=== PATIENT | male | born 1990 | race Two or more races ===

== ENCOUNTER 2019-03-08 16:26 | Emergency (ER) | payer MEDICAID ==
[~2019-03-08] VITALS: Ht 185.4 cm; Wt 86.2 kg
--- NOTE | 2019-03-08 16:33 | NUR ---
PT BIBRA FROM HOME C/O EPIGASTRIP PAIN W/ NAUSEA AND VOMITING X 1 MONTH. WORST SINCE THIS MORNING. PT WAS SEEN ALREADY BY GI SPECIALIST. GOWNED AND PLACED ON MONITOR. DANNY NORMAN.
--- NOTE | 2019-03-08 16:35 | NUR ---
DR NEGRETE AT BEDSIDE FOR EVAL.
--- NOTE | 2019-03-08 16:47 | NUR ---
IV LINE STARTED BLOOD DRAWN AND SENT TO LAB.
[2019-03-08] MEDS ORDERED: ONDANSETRON HCL/PF 4 MG/2 ML VIAL ONE (16:50)
[2019-03-08 16:52] LABS: BASOPHILS # (AUTO) 0.1 /CMM (0.0-0.2); BASOPHILS % (AUTO) 0.8 % (0.0-2.0); EOSINOPHILS % (AUTO) 0.1 % (0.0-6.0); HEMATOCRIT 48 % (39-51); HEMOGLOBIN 16.3 g/dL (13.5-17.5); LYMPHOCYTES # (AUTO) 1.6 /CMM (0.8-4.8); LYMPHOCYTES % (AUTO) 23.3 % (20.0-44.0); MEAN CORPUSCULAR HGB CONC 34 g/dl (31.0-36.0); MEAN CORPUSCULAR VOLUME 86 fL (80-96); MONOCYTES # (AUTO) 0.5 /CMM (0.1-1.30); MONOCYTES % (AUTO) 6.7 % (2.0-12.0); NEUTROPHILS # (AUTO) 4.8 /CMM (1.8-8.9); NEUTROPHILS % (AUTO) 69.1 % (43.0-81.0); PLATELET COUNT (AUTO) 317 /CMM (150-450); WHITE BLOOD COUNT (AUTO) 6.9 K/uL (4.3-11.0)
[2019-03-08] MEDS ORDERED: ONDANSETRON HCL/PF 4 MG/2 ML VIAL IVP ONE (17:00)
[2019-03-08] MEDS ORDERED: IV NS 0.9% 1,000 ML BAG IV ONE (17:00)
[2019-03-08 17:02] LABS: CALCIUM, SERUM 9.8 mg/dL (8.5-10.1); CREATININE 0.9 mg/dL (0.6-1.3); POTASSIUM 3.5 mmol/L (3.5-5.1)
[2019-03-08 17:07] LABS: BILIRUBIN,DIRECT 0.2 mg/dL (0.0-0.2); BILIRUBIN,TOTAL 0.9 mg/dL (0.2-1.0); TOTAL PROTEIN, SERUM 7.5 g/dL (6.4-8.2)
--- NOTE | 2019-03-08 18:16 | NUR ---
Patient discharged to home in stable condition. Written and verbal after care instructions given. Patient verbalizes understanding of instruction.IV removed. Catheter intact and site benign. Pressure and 4x4 applied to site. No bleeding noted.
[2019-03-08 18:23] VITALS: BP 128/76
== END 2019-03-08 18:16 | disposition home or self-care (01) ==
LOC: ER 16:33
DX: R10.9 Unspecified abdominal pain (principal); R11.10 Vomiting, unspecified; R19.7 Diarrhea, unspecified; F12.288 Cannabis dependence with other cannabis-induced disorder; F17.200 Nicotine dependence, unspecified, uncomplicated; E11.9 Type 2 diabetes mellitus without complications; R00.1 Bradycardia, unspecified; Z98.890 Other specified postprocedural states
CPT/HCPCS: 36415; 80048; 80076; 83690; 85025; 96361; 96374; 99283; 99406; J2405; J7030

== ENCOUNTER 2019-12-23 22:27 | Emergency (ER) | payer MEDICAID ==
[~2019-12-23] VITALS: Ht 185.4 cm; Wt 70.3 kg
[2019-12-23] MEDS ORDERED: PANTOPRAZOLE 40 MG VIAL ONE (22:52)
[2019-12-23] MEDS ORDERED: ONDANSETRON HCL/PF 4 MG/2 ML VIAL ONE (22:53)
[2019-12-23 22:56] LABS: BASOPHILS # (AUTO) 0.1 /CMM (0.0-0.2); BASOPHILS % (AUTO) 0.4 % (0.0-2.0); EOSINOPHILS % (AUTO) 0.1 % (0.0-6.0); HEMATOCRIT 46 % (39-51); HEMOGLOBIN 15.2 g/dL (13.5-17.5); LYMPHOCYTES # (AUTO) 1.6 /CMM (0.8-4.8); LYMPHOCYTES % (AUTO) 10.9 % (20.0-44.0); MEAN CORPUSCULAR HGB CONC 33 g/dl (31.0-36.0); MEAN CORPUSCULAR VOLUME 87 fL (80-96); MONOCYTES # (AUTO) 0.7 /CMM (0.1-1.30); MONOCYTES % (AUTO) 4.9 % (2.0-12.0); NEUTROPHILS # (AUTO) 12.2 /CMM (1.8-8.9); NEUTROPHILS % (AUTO) 83.7 % (43.0-81.0); PLATELET COUNT (AUTO) 639 /CMM (150-450); RED BLOOD CELL COUNT(AUTO) 5.24 MIL/uL (4.5-6.0); WHITE BLOOD COUNT (AUTO) 14.6 K/uL (4.3-11.0)
[2019-12-23] MEDS ORDERED: PANTOPRAZOLE 40 MG VIAL IV ONE (23:00)
[2019-12-23] MEDS ORDERED: IV NS 0.9% 1,000 ML BAG IV ONE ×2 (23:00)
[2019-12-23] MEDS ORDERED: ONDANSETRON HCL/PF 4 MG/2 ML VIAL IVP ONE (23:00)
[2019-12-23 23:06] LABS: CALCIUM, SERUM 9.2 mg/dL (8.5-10.1); CREATININE 0.8 mg/dL (0.6-1.3)
[2019-12-23 23:11] LABS: ALBUMIN 3.4 g/dL (3.4-5.0); BILIRUBIN,DIRECT 0.2 mg/dL (0.0-0.2); BILIRUBIN,TOTAL 0.8 mg/dL (0.2-1.0); TOTAL PROTEIN, SERUM 6.6 g/dL (6.4-8.2)
--- NOTE | 2019-12-23 23:15 | NUR ---
COVID SWAB COLLECTED AND SENT TO THE LAB.
--- NOTE | 2019-12-23 23:30 | NUR ---
X RAY AT BED SIDE
--- NOTE | 2019-12-24 00:05 | NUR ---
PATIENT UNWILLING TO PROVIDE URINE. PATIENT UNWILLING TO KEEP HIS ARM STRAIGHT. PATIENT STATES, "I DON'T GIVE A FUCK WHAT YOU WANT, LEAVE ME THE FUCK ALONE". IS NOTIFIED.
--- NOTE | 2019-12-24 00:17 | NUR ---
RETURNED FROM CT
--- NOTE | 2019-12-24 00:29 | NUR ---
URINE COLLECTED AND SENT TO THE LAB.
[2019-12-24 00:41] LABS: APPEARANCE,URINE CLEAR (CLEAR); BILIRUBIN,URINE SMALL (NEGATIVE); BLOOD, URINE NEGATIVE Ery/uL (NEGATIVE); COLOR,URINE YELLOW (YELLOW); LEUKOCYTE ESTERASE ,URINE NEGATIVE (NEGATIVE); NITRITE, URINE NEGATIVE (NEGATIVE); PH,URINE 6.5 (5.0-8.0); PROTEIN,URINE NEGATIVE (NEGATIVE); UGLUCOSE >=1000 mg/dL (NEGATIVE); UROBILINOGEN,URINE 0.2 EU/dL (0.2)
[2019-12-24 01:12] LABS: RBC,URINE 0-2 /HPF (0-2); WBC,URINE 0-2 /HPF (0-3)
[2019-12-24 01:13] LABS: BACTERIA,URINE None seen /HPF (None Seen); SQUAMOUS EPITHELIAL CELL,UR Few /HPF (None Seen)
--- NOTE | 2019-12-24 01:35 | NUR ---
IV removed. Catheter intact and site benign. Pressure and 4x4 applied to site. No bleeding noted.
--- NOTE | 2019-12-24 01:35 | NUR ---
Patient discharged to home in stable condition. Written and verbal after care instructions given. Patient verbalizes understanding of instruction.
[2019-12-24 01:36] VITALS: BP 124/78
== END 2019-12-24 01:36 | disposition home or self-care (01) ==
LOC: ER 22:28
DX: R10.13 Epigastric pain (principal); R11.10 Vomiting, unspecified; E11.65 Type 2 diabetes mellitus with hyperglycemia; Z79.4 Long term (current) use of insulin; R06.02 Shortness of breath; D72.829 Elevated white blood cell count, unspecified; Z20.828 Contact with and (suspected) exposure to other viral communicable diseases
CPT/HCPCS: 36415; 71045; 74176; 80048; 80076; 81001; 82962; 85025; 87426; 96361; 96374; 96375; 99284; C9113; C9803; J2405; J7030 ×2; 81000-TC

== ENCOUNTER 2021-01-08 15:30 | Inpatient (IN) | payer MEDICAID ==
[2021-01-08] VITALS (7 sets, daily range): BP systolic 106–150; BP diastolic 60–84
[~2021-01-08] VITALS: Ht 185.4 cm; Wt 85.3 kg
--- NOTE | 2021-01-08 15:40 | NUR ---
PT VOMITED BLOOD X 1; C/O ABDOMINAL PAIN . BS - 424 MM/DL. A/OX3; TOLERATING R/A AT 99%. CONNTECTED PT TO POX AND TELE MONITOR. SAFETY MEASURES IN PLACE
[2021-01-08] MEDS ORDERED: ONDANSETRON HCL/PF 4 MG/2 ML VIAL ONE ×2 (15:54→18:31)
[2021-01-08] MEDS ORDERED: PANTOPRAZOLE 40 MG VIAL ONE (15:54)
[2021-01-08] MEDS ORDERED: IV LR 1000 ML 1,000 ML IV ONE ×2 (16:00→17:30)
[2021-01-08] MEDS ORDERED: PANTOPRAZOLE 40 MG VIAL IV ONE (16:00)
[2021-01-08] MEDS ORDERED: IV NS 0.9% 1,000 ML BAG IV ONE (16:00)
[2021-01-08] MEDS ORDERED: ONDANSETRON HCL/PF 4 MG/2 ML VIAL IVP ONE (16:00)
[2021-01-08 16:08] LABS: ABG BASE EXCESS -20.8 mmol/L; ABG PCO2 8.9 mmHg (35.0-45.0); ABG PO2 134.1 mmHg (75.0-100.0); COHb 0.2 % (0.5-1.5); MetHb 0.9 % (0.0-1.5); SITE, ABG Right Radial; VENT MODE, BG ROOM AIR
--- NOTE | 2021-01-08 16:10 | NUR ---
INTEGRATED SPECIALIST AT PT'S BEDSIDE
[2021-01-08 16:21] LABS: BASOPHILS % (AUTO) 0.1 % (0.0-2.0); HEMATOCRIT 53 % (39-51); HEMOGLOBIN 17.3 g/dL (13.5-17.5); LYMPHOCYTES # (AUTO) 0.4 K/uL (0.8-4.8); LYMPHOCYTES % (AUTO) 1.9 % (20.0-44.0); MEAN CORPUSCULAR HGB CONC 32 g/dl (31.0-36.0); MEAN CORPUSCULAR VOLUME 88 fL (80-96); MONOCYTES # (AUTO) 0.8 K/uL (0.1-1.30); MONOCYTES % (AUTO) 3.7 % (2.0-12.0); NEUTROPHILS # (AUTO) 20.4 K/uL (1.8-8.9); NEUTROPHILS % (AUTO) 94.3 % (43.0-81.0); PLATELET COUNT (AUTO) 387 K/uL (150-450); RED BLOOD CELL COUNT(AUTO) 6.04 MIL/uL (4.5-6.0); WHITE BLOOD COUNT (AUTO) 21.6 K/uL (4.3-11.0)
[2021-01-08] MEDS ORDERED: SODIUM BICARBONATE SYR 50 MEQ/50 ML DISP.SYRIN ONE (16:53)
[2021-01-08] MEDS ORDERED: SODIUM BICARBONATE SYR 50 MEQ/50 ML DISP.SYRIN IV ONE (17:00)
--- NOTE | 2021-01-08 17:10 | NUR ---
REINA PICCLINE #18; PATENT AND INTACT INSERTED PICCLINE NURSE
[2021-01-08 17:12] LABS: ALANINE AMINOTRANSFERASE 22 U/L (12-78); ALBUMIN 3.7 g/dL (3.4-5.0); ALKALINE PHOSPHATASE 113 U/L (46-116); ASPARTATE AMINOTRANSFERASE 14 U/L (15-37); BILIRUBIN,DIRECT 0.2 mg/dL (0.0-0.2); BILIRUBIN,TOTAL 0.8 mg/dL (0.2-1.0); CALCIUM, SERUM 7.7 mg/dL (8.5-10.1); CREATININE 1.7 mg/dL (0.6-1.3); LIPASE 180 U/L (73-393); POTASSIUM 4.1 mmol/L (3.5-5.1); SODIUM SERUM 123 mmol/L (136-145); TOTAL PROTEIN, SERUM 7.6 g/dL (6.4-8.2); UREA NITROGEN, BLOOD 55 mg/dL (7-18)
[2021-01-08 17:13] LABS: CARBON DIOXIDE 6 mmol/L (21-32); CHLORIDE 80 mmol/L (98-107); GLUCOSE 543 mg/dL (74-106)
--- NOTE | 2021-01-08 17:18 | NUR ---
EMISSION TECHNICIAN AT PT'S BEDSIDE FOR REINA PICCLINE CHECK
[2021-01-08] MEDS ORDERED: INSULIN REGULAR, HUMAN 100 UNITS in IV NS 0.9% 100 ML IV PRN (17:30)
--- NOTE | 2021-01-08 17:45 | NUR ---
CALLED [facility], PAGED DR RUDD
--- NOTE | 2021-01-08 17:46 | NUR ---
TOBIN SPEAKING WITH CADEN
[2021-01-08] MEDS ORDERED: PIPERACILLIN /TAZOBACTAM 3.375 G in IV D5W 50 ML IV ONE (18:00)
--- NOTE | 2021-01-08 18:06 | NUR ---
CALLED BARBARA CAGE
--- NOTE | 2021-01-08 18:09 | NUR ---
DR GILLETTE, FROM [place], TO DR. NEGRETE
[2021-01-08] MEDS ORDERED: PIPERACILLIN /TAZOBACTAM 3.375 G VIAL IV ONE (18:18)
--- NOTE | 2021-01-08 18:20 | NUR ---
UA TAKEN AND SENT TO LAB
--- NOTE | 2021-01-08 18:29 | NUR ---
BS 548 AND NOTIFIED CADEN CAMPBELL. CALLED PHARMACY FOR INSULIN DRIP BAG
[2021-01-08] MEDS ORDERED: MORPHINE SULFATE INJ 4 MG/ML DISP.SYRIN ONE (18:31)
[2021-01-08] MEDS ORDERED: INSULIN REGULAR, HUMAN 100 UNIT/ML 10 ML VIAL ONE ×2 (18:32→18:52)
--- NOTE | 2021-01-08 18:35 | NUR ---
SPOKE TO PHARMACY RUTH TO BRING INSULIN DRIP
--- NOTE | 2021-01-08 18:42 | NUR ---
PER CADEN VERBAL ORDERS: ADMINISTERED ZOFRAN 4MG IVP MORPHINE 4MG IVP PT C/O ABD PAIN. WILL REASSESS PT
[2021-01-08] MEDS ORDERED: Z GUARD REMEDY 2 OZ OINT TP PRN (19:00)
[2021-01-08] MEDS ORDERED: ONDANSETRON HCL/PF - ER 4 MG/2 ML VIAL IV ONE (19:00)
[2021-01-08] MEDS ORDERED: ACETAMINOPHEN 325 MG TABLET PO PRN (19:00)
[2021-01-08] MEDS ORDERED: MORPHINE SULFATE INJ 10 MG/ML DISP.SYRIN IV ONE (19:00)
[2021-01-08] MEDS ORDERED: MAGNESIUM HYDROXIDE 30 ML UDC PO PRN (19:00)
[2021-01-08 19:07] LABS: BILIRUBIN,URINE NEGATIVE (NEGATIVE); COLOR,URINE YELLOW (YELLOW); LEUKOCYTE ESTERASE ,URINE NEGATIVE (NEGATIVE); NITRITE, URINE NEGATIVE (NEGATIVE); PROTEIN,URINE NEGATIVE (NEGATIVE); UGLUCOSE >=1000 mg/dL (NEGATIVE); UROBILINOGEN,URINE 0.2 EU/dL (0.2)
--- NOTE | 2021-01-08 19:09 | NUR ---
MIDLINE #18G INSULIN DRIP 7.07ML/HR ADMINISTERED WITH 2 RN WITNESS
--- NOTE | 2021-01-08 19:14 | NUR ---
BLOOD COLLECTED VIA MIDLINE AND SENT TO LAB
--- NOTE | 2021-01-08 19:21 | NUR ---
ROOM [facility]
--- NOTE | 2021-01-08 19:43 | NUR ---
BS 514; CHANGE MD AWARE
[2021-01-08 19:48] LABS: BACTERIA,URINE None seen /HPF (None Seen); SQUAMOUS EPITHELIAL CELL,UR 0-2 /HPF (None Seen); WBC,URINE 0-2 /HPF (0-3)
--- NOTE | 2021-01-08 20:14 | NUR ---
CALLED ICU TO GIVE REPORT; AWAITING CALL BACK FROM BRENDEN MEEKS
--- NOTE | 2021-01-08 20:24 | NUR ---
RN NOTES RECEIVED ER ADMISSION REPORT FROM CONSTANTINO GUIDRY. ALL PERTINENT ADMISSION INFO REGARDING PT NOTED. WILL WAIT FOR PT TO BE TRANSFERRED TO UNIT AND ADDRESS NEEDS ACCORDINGLY. APARTMENT LEASING AGENT MADE AWARE.
--- NOTE | 2021-01-08 20:28 | NUR ---
REPORT GIVEN TO BRENDEN PROCESS ARTIST FOR ANNALISE
--- NOTE | 2021-01-08 20:46 | NUR ---
COVID SWAB COLLECTED AND SENT TO LAB
--- NOTE | 2021-01-08 20:55 | NUR ---
RN NOTES RECEIVED PT FROM ER VIA GURNEY ACCOMPANIED BY 2 ER STAFF AND TRANSFERRED TO BED VIA 2 PERSON ASSIST. PT IS A/OX3-4;PT ON ROOM AIR WITH RESPIRATIONS EVEN AND UNLABORED. PATIENT COMPLAINS OF UPPER ABDOMAIN PAIN 10/10. COMPREHENSIVE PHYSICAL ASSESSMENT AND PATIENT CARE DONE. CALL LIGHT WITHIN REACH, SAFETY MEASURES AND ISOLATION PRECAUTION IN PLACE, WILL CONTINUE MONITOR AND ASSESS THROUGHOUT THE SHIFT. WILL CARRY OUT MD ORDERS ACCORDINGLY. POISER BALANCE MADE AWARE.
[2021-01-08] MEDS: IV NS 0.9% 1,000 ML IV SCH (21:00)
--- NOTE | 2021-01-08 21:01 | NUR ---
PT TRANSFERRED TO ICU VIA ACLS PROTOCOL WITH INSULIN DRIP 7.07ML/HR IV ORDERED FROM ER:
[2021-01-08] MEDS ORDERED: CEFTRIAXONE 1 G VIAL ONE (21:15)
--- NOTE | 2021-01-08 21:15 | NUR ---
RN NOTES NOTIFIED DYLAN CAMPBELL (DR. MARTÍNEZ) AND SECURED FOR THE FOLOWING ORDER: INSULIN DRIP PER BRIAN JUANITO PROTOCOL, AND MORPHINE 2MG FOR SEVERE PAIN 8-10 Q4H PRN Addendum: 01/08/21 at 2144 by LIZZY BAILON RN WILL CARRY OUT SCHEDULED , PORTER LUGGAGE MADE AWARE.
[2021-01-08] MEDS: CEFTRIAXONE 1 G in IV D5W 50 ML IV SCH (21:26)
[2021-01-08] MEDS: INSULIN REGULAR, HUMAN 100 UNIT in IV NS 0.9% 99 ML IV PRN (22:04)
--- NOTE | 2021-01-08 22:15 | NUR ---
RN NOTES RECEIVED CALL FROM JONATHAN (SISTER OF PATIENT-[phone]) WAS ADVSIED THAT SHE WILL BE THE AUDITOR APPRAISER FOR THE PATIENT. RN ACKNOWLEDGED. ALSO ADVISED HER TO CONTACT ADMITTING TO HAVE HER NAME LISTED ON PT'S RECORD. SHE ACKNOWLEDGED.
[2021-01-08] MEDS: MORPHINE SULFATE INJ 2 MG/ML DISP.SYRIN IV PRN (23:40)
[2021-01-08] MEDS: ONDANSETRON HCL/PF 4 MG/2 ML VIAL IVP PRN (23:44)
[2021-01-09] VITALS (42 sets, daily range): BP systolic 84–143; BP diastolic 50–84
[2021-01-09 00:28] LABS: CALCIUM, SERUM 6.2 mg/dL (8.5-10.1); CREATININE 1.1 mg/dL (0.6-1.3)
[2021-01-09 00:40] LABS: POTASSIUM 2.5 mmol/L (3.5-5.1)
--- NOTE | 2021-01-09 00:40 | NUR ---
RN NOTES RECEIVED CRITICAL LAB ENDORSED BY CORTNEY; POTASSIUM @2.5. DYLAN CAMPBELL () INFORMED. AWAITING FOR ORDERS. CHRONOGRAPH OPERATOR MADE AWARE. Addendum: 01/09/21 at 0058 by LIZZY BAILON RN DYLAN CAMPBELL (DR. MARTÍNEZ) ORDERED POTASSIUM CHLORIDE 80MEQ IV. ELI MEEKS MADE AWARE. WILL CARRY OUT MD ORDER.
[2021-01-09] MEDS: POTASSIUM CL. PREMIX PERIPHER. 50 ML IV SCH ×8 (01:11→08:31)
[2021-01-09] MEDS: MORPHINE SULFATE INJ 2 MG/ML DISP.SYRIN IV PRN ×5 (04:18→19:12)
[2021-01-09] MEDS: IV NS 0.9% 1,000 ML IV SCH ×2 (05:01)
[2021-01-09 05:14] LABS: BASOPHILS % (AUTO) 0.1 % (0.0-2.0); HEMATOCRIT 43 % (39-51); HEMOGLOBIN 14.4 g/dL (13.5-17.5); LYMPHOCYTES # (AUTO) 0.6 K/uL (0.8-4.8); MEAN CORPUSCULAR HGB CONC 34 g/dl (31.0-36.0); MEAN CORPUSCULAR VOLUME 85 fL (80-96); MONOCYTES # (AUTO) 1.2 K/uL (0.1-1.30); MONOCYTES % (AUTO) 6.6 % (2.0-12.0); NEUTROPHILS % (AUTO) 90.3 % (43.0-81.0); PLATELET COUNT (AUTO) 229 K/uL (150-450); RED BLOOD CELL COUNT(AUTO) 5.03 MIL/uL (4.5-6.0); WHITE BLOOD COUNT (AUTO) 18.8 K/uL (4.3-11.0)
[2021-01-09 07:17] LABS: CREATININE 1.1 mg/dL (0.6-1.3); MAGNESIUM 2.5 mg/dL (1.8-2.4); PHOSPHORUS 1.1 mg/dL (2.5-4.9); POTASSIUM 3.5 mmol/L (3.5-5.1)
--- NOTE | 2021-01-09 07:17 | NUR ---
RN CLOSING NOTE: PATIENT REMAINS IN ROOM IN NO SIGNS OF RESPIRATORY DISTRESS, PATIENT STILL ON ROOM AIR ;TOLERATING WELL SATURATING @ >95% SP02. SAFETY MEASURES IMPLEMENTED, BED IN LOWEST POSITION, LOCKED, SIDE RAILS UP, CALL LIGHT WITHIN REACH. ALL NEEDS AND ORDERS ADDRESSED DURING THE SHIFT. IV ACCESS MAINTAINED INTACT, SECURED AND FLUSHING WELL. ALL DUE MEDS GIVEN ORDERED & SCHEDULED ; PATIENT TOLERATED WELL. STILL ON INSULIN DRIP CURRENTLY AT .42UNITS/HR INFUSING AND MONITORED PER PROTOCOL; WAIITNG FOR NEW ANION GAP RESULT. POTASSIUM COVERAGE GIVEN DURING THE SHIFT 6/8 BAGS GIVEN TO COMPLETE 80MEQ. ENDORSED TO AM SHIFT FOR THE 2 REMAINING BAG. PATIENT KEPT CLEAN AND COMFORTABLE WITHIN THE SHIFT. PATIENT ENDORSED TO INCOMING SHIFT RN WITH STABLE VITAL SIGN AND FOR CONTINUITY OF CARE.
--- NOTE | 2021-01-09 07:52 | NUR ---
RN NOTE PT ASLEEP AND LETHARGIC. PT HAS RU PICC RUNNING AT 200 NSCC AND 3.42 INSULIN DRIP. PT HR 100 AND BP 119/68. BS Q1H AND WILL FOLLOW INSULIN DRIP PROTOCOL OF BSX2 /100. WILL CONTINUE TO MONITOR.
[2021-01-09] MEDS: IV D5/0.45 NACL 1,000 ML IV SCH ×2 (08:29→16:10)
[2021-01-09] MEDS: POTASSIUM PHOSPHATE MM 7.5 MMOL in IV NS 0.9% 100 ML IV SCH ×2 (09:26→12:31)
[2021-01-09 11:18] LABS: CREATININE 1.1 mg/dL (0.6-1.3); POTASSIUM 3.7 mmol/L (3.5-5.1)
[2021-01-09] MEDS: ONDANSETRON HCL/PF 4 MG/2 ML VIAL IVP PRN ×3 (13:30→14:27)
[2021-01-09 14:24] LABS: CALCIUM, SERUM 6.9 mg/dL (8.5-10.1); CREATININE 1.1 mg/dL (0.6-1.3); POTASSIUM 3.3 mmol/L (3.5-5.1)
[2021-01-09] MEDS ORDERED: Sodium Phosphate 30 MMOL in IV NS 0.9% 250 ML IV SCH (15:00)
[2021-01-09] MEDS: BLOOD SUGAR DIAGNOSTIC 1 EACH STRIP IN SCH ×5 (16:11→19:57)
[2021-01-09] MEDS: INSULIN REGULAR, HUMAN 100 UNIT in IV NS 0.9% 99 ML IV PRN (17:00)
[2021-01-09 18:56] LABS: CALCIUM, SERUM 7.1 mg/dL (8.5-10.1); POTASSIUM 3.1 mmol/L (3.5-5.1)
--- NOTE | 2021-01-09 19:30 | NUR ---
RN OPENING NOTE REEIVED PATIENT IN BED. A/OX3, VERY LETHARGIC, FOLLOWS COMMAND. TOLERATING ROOM AIR. RESPIRATIONS ARE EVEN AND UNLABORED. NO S/SS OB NOTED. PATIENT JUST RECEIVED MORPHINE FROM PREVIOUS SHIFT. TELE MONITOR READS SINUS RHTYHM HR 95. IN NO APPARENT DISTRES. IV ACEESS IN RIJ PATENT AND SALINE LOCKED, AND REINA PICC LINE RUNING INSULIN AT 4.4UNIT/HR AND D51/2NS@125ML/HR. BED IS LOW AND LOCKED, HOB ELEVATED IN SEMI FOWLERS, SIDE RIALS UP X2, CALL LIGHT WITHIN REACH.
[2021-01-09] MEDS: CEFTRIAXONE 1 G in IV D5W 50 ML IV SCH (19:58)
--- NOTE | 2021-01-09 20:42 | NUR ---
RN NOTE INFORMED GRAIN RECEIVER DR. MARTÍNEZ THAT PATIENT 1999 BS IS 198. ANION GAP IS NOW 14. PATINT STILL ON INSULIN DRIP. RECEIVED ORDERS TO STOP INSULIN DRIP. PLACE ON RISS MODERATE AC HS AND START DIABETIC DIET. AND START LANTUS 20 UNITS SQ. ORDERS READ BACK NOTED AND CARRIED OUT.
[2021-01-09] MEDS ORDERED: DEXTROSE 50%-WATER 50 ML DISP.SYRIN IV PRN (21:00)
[2021-01-09] MEDS: BLOOD SUGAR DIAGNOSTIC 1 EACH STRIP VI SCH (21:36)
[2021-01-09] MEDS: INSULIN GLARGINE, 100 UNIT/ML CARTRIDGE SQ SCH (21:45)
[2021-01-09] MEDS: *INSULIN REGULAR(HUMULIN R)HUM 100 UNIT/ML VIAL SQ PRN (21:46)
[2021-01-10] VITALS (37 sets, daily range): BP systolic 93–150; BP diastolic 51–94
[2021-01-10] MEDS: IV D5/0.45 NACL 1,000 ML IV SCH ×2 (00:02→08:14)
[2021-01-10] MEDS: MORPHINE SULFATE INJ 2 MG/ML DISP.SYRIN IV PRN ×4 (02:02→17:02)
[2021-01-10] MEDS: MAG HYDROX/AL HYDROX/SIMETH 30 ML UDC PO PRN (03:15)
[2021-01-10] MEDS: ONDANSETRON HCL/PF 4 MG/2 ML VIAL IVP PRN ×4 (05:26→17:06)
--- NOTE | 2021-01-10 07:16 | NUR ---
RN OPENING NOTE PATIENT RESTING IN BED. A/OX3, REMAINS LETHARGIC. REMAINS TOLERATING ROOM AIR. NO SOB NOTED. MANAGED PAIN WITH MORPHINE, ONE EPISODE OF EMESIS , ZOFRAN GIVEN, MAALOX GIVEN FOR HEART BURN. TELE IS SINUS RHTYHM. NO DISTRES. IV ACEESS IN RI AND REINA PICC LINE D51/2NS@125ML/HR. BED REMAINS LOW AND LOCKED, HOB ELEVATED IN SEMI FOWLERS, SIDE RIALS UP X2, CALL LIGHT WITHIN REACH. WILL ENDORSE TO ONCOMING SHIFT. Addendum: 01/10/21 at 0719 by MATHIEU ROBLES RN CLOSING NOTE , NOT OPENING NOTE
[2021-01-10 07:18] LABS: BASOPHILS % (AUTO) 0.3 % (0.0-2.0); HEMATOCRIT 41 % (39-51); LYMPHOCYTES # (AUTO) 0.9 K/uL (0.8-4.8); LYMPHOCYTES % (AUTO) 8.8 % (20.0-44.0); MEAN CORPUSCULAR HGB CONC 34 g/dl (31.0-36.0); MEAN CORPUSCULAR VOLUME 84 fL (80-96); MONOCYTES # (AUTO) 0.8 K/uL (0.1-1.30); MONOCYTES % (AUTO) 7.4 % (2.0-12.0); NEUTROPHILS # (AUTO) 8.7 K/uL (1.8-8.9); NEUTROPHILS % (AUTO) 83.5 % (43.0-81.0); PLATELET COUNT (AUTO) 172 K/uL (150-450); RED BLOOD CELL COUNT(AUTO) 4.83 MIL/uL (4.5-6.0); WHITE BLOOD COUNT (AUTO) 10.4 K/uL (4.3-11.0)
[2021-01-10 07:37] LABS: CALCIUM, SERUM 7.2 mg/dL (8.5-10.1); CREATININE 0.7 mg/dL (0.6-1.3); MAGNESIUM 2.3 mg/dL (1.8-2.4); PHOSPHORUS 1.3 mg/dL (2.5-4.9)
[2021-01-10 07:40] LABS: POTASSIUM 2.8 mmol/L (3.5-5.1)
[2021-01-10] MEDS: BLOOD SUGAR DIAGNOSTIC 1 EACH STRIP VI SCH ×4 (08:14→21:32)
--- NOTE | 2021-01-10 08:30 | NUR ---
RN NOTE PATIENT K+ 2.8 MD MADE AWARE.
[2021-01-10] MEDS: *INSULIN REGULAR(HUMULIN R)HUM 100 UNIT/ML VIAL SQ PRN ×2 (08:45→21:41)
[2021-01-10] MEDS: POTASSIUM PHOSPHATE MM 7.5 MMOL in IV NS 0.9% 100 ML IV SCH ×2 (09:49→12:31)
[2021-01-10] MEDS: POTASSIUM CHLORIDE 20 MEQ TAB.PRT.SR PO SCH ×2 (09:49→10:35)
[2021-01-10] MEDS: INSULIN REGULAR, HUMAN 100 UNIT/ML 3 ML VIAL SQ PRN ×2 (12:33→17:08)
[2021-01-10] MEDS: CALCIUM CARBONATE 500 MG TAB.CHEW PO SCH ×2 (13:14→21:31)
[2021-01-10 16:18] LABS: CALCIUM, SERUM 7.2 mg/dL (8.5-10.1); CREATININE 0.8 mg/dL (0.6-1.3); POTASSIUM 3.2 mmol/L (3.5-5.1)
[2021-01-10] MEDS: IV D5/0.45 NACL 1,000 ML IV PRN (17:06)
[2021-01-10] MEDS: CEFTRIAXONE 1 G in IV D5W 50 ML IV SCH (19:31)
[2021-01-10] MEDS: INSULIN GLARGINE, 100 UNIT/ML CARTRIDGE SQ SCH (21:42)
[2021-01-11] VITALS (27 sets, daily range): BP systolic 10–150; BP diastolic 50–80
--- NOTE | 2021-01-11 01:07 | NUR ---
RN NOTE AT 1931, ROCEPHIN ADMINISTERED BY Vanessa ERICKSON RN, SCANNED ACCIDENTALLY, PREVIOUS NURSE STILL SIGNED IN AT THE TIME, DID NOT SIGN OUT
[2021-01-11] MEDS: IV D5/0.45 NACL 1,000 ML IV PRN ×2 (01:28→09:40)
[2021-01-11] MEDS: ONDANSETRON HCL/PF 4 MG/2 ML VIAL IVP PRN (04:27)
[2021-01-11] MEDS: MORPHINE SULFATE INJ 2 MG/ML DISP.SYRIN IV PRN ×3 (04:28→20:08)
[2021-01-11 04:32] LABS: BASOPHILS % (AUTO) 0.3 % (0.0-2.0); EOSINOPHILS % (AUTO) 1.1 % (0.0-6.0); HEMATOCRIT 40 % (39-51); HEMOGLOBIN 13.7 g/dL (13.5-17.5); LYMPHOCYTES # (AUTO) 1.5 K/uL (0.8-4.8); MEAN CORPUSCULAR HGB CONC 35 g/dl (31.0-36.0); MEAN CORPUSCULAR VOLUME 83 fL (80-96); MONOCYTES # (AUTO) 0.8 K/uL (0.1-1.30); MONOCYTES % (AUTO) 8.9 % (2.0-12.0); NEUTROPHILS # (AUTO) 6.4 K/uL (1.8-8.9); NEUTROPHILS % (AUTO) 72.7 % (43.0-81.0); PLATELET COUNT (AUTO) 151 K/uL (150-450); RED BLOOD CELL COUNT(AUTO) 4.78 MIL/uL (4.5-6.0); WHITE BLOOD COUNT (AUTO) 8.7 K/uL (4.3-11.0)
[2021-01-11 04:48] LABS: CALCIUM, SERUM 7.7 mg/dL (8.5-10.1); CREATININE 0.6 mg/dL (0.6-1.3); MAGNESIUM 2.2 mg/dL (1.8-2.4)
[2021-01-11 05:05] LABS: POTASSIUM 2.8 mmol/L (3.5-5.1)
[2021-01-11 05:08] LABS: PHOSPHORUS 0.9 mg/dL (2.5-4.9)
[2021-01-11] MEDS ORDERED: POTASSIUM PHOSPHATE MM 7.5 MMOL in IV NS 0.9% 100 ML IV SCH (07:00)
--- NOTE | 2021-01-11 07:22 | NUR ---
RN NOTE CRITICAL OF K 2.8 AND PHOS 0.9. ORDERS FROM MD MARTÍNEZ, 40MMOL IV CARRIED OUT. PT DENIES PAIN. AND N.V PT VSS. SAFETY MEASURES IN PLACE. ENDORSED TO DAY SHIFT FOR CONTINUATION OF CARE
--- NOTE | 2021-01-11 07:30 | NUR ---
RN NOTES PT FOUND SUPINE SLEEPING DISPLAYING NO S/S OF DISTRESS, FLACC = 0 AND BREATHING IS EVEN AND UNLABORED ON RA. S1S2 NOTED, PULSES PALPATED IN ALL FOUR EXTREMITIES. ASSESSMENT WOKE UP PT, PT ENDORSED NO PAIN AND IS A&OX4. R UA PICC IS PATIENT AND INTACT. VSS, RN WILL MONITOR AND TREAT THROUGHOUT SHIFT. SAFETY MEASUYRES IN PALCE, BED LOCKED AND IN LOWEST POSITION, SIDE RAILS UPX2, CALL LIGHT WITHIN REACH, PT INSTRUCTED TO CALL FOR ASSISTANCE.
[2021-01-11] MEDS ORDERED: POTASSIUM CHLORIDE 20 MEQ TAB.PRT.SR PO ONE (08:00)
[2021-01-11] MEDS: POTASSIUM PHOSPHATE MM 15 MMOL in IV NS 0.9% 250 ML IV SCH ×2 (08:16→11:37)
[2021-01-11] MEDS: CALCIUM CARBONATE 500 MG TAB.CHEW PO SCH ×2 (08:16→20:09)
[2021-01-11] MEDS: BLOOD SUGAR DIAGNOSTIC 1 EACH STRIP VI SCH ×4 (08:17→21:57)
[2021-01-11] MEDS: *INSULIN REGULAR(HUMULIN R)HUM 100 UNIT/ML VIAL SQ PRN ×2 (08:36→22:04)
[2021-01-11] MEDS: INSULIN REGULAR, HUMAN 100 UNIT/ML 3 ML VIAL SQ PRN (12:11)
[2021-01-11] MEDS: MAG HYDROX/AL HYDROX/SIMETH 30 ML UDC PO PRN (14:56)
[2021-01-11] MEDS ORDERED: POTASSIUM PHOSPHATE MM 5 MMOL in IV NS 0.9% 100 ML IV SCH (15:00)
[2021-01-11] MEDS: POTASSIUM PHOSPHATE MM 7.5 MMOL in IV NS 0.9% 100 ML IV SCH ×2 (15:15→20:21)
--- NOTE | 2021-01-11 16:30 | NUR ---
TRANSFER TO [place] RN CALLED AND GAVE REPORT TO CONSTANTINO MCKEE. PT TRANSFERRED TO [facility] ACCOMPANIED BY PRIMARY RN AND TAKE OFF WORKER VIA HOSPITAL BED. PT CURRENTLY ENDORSES 6/10 PAIN SCALE AND REPORTS OF DISCOMFORT OF WHICH RN COMMUNICATED TO ACCEPTING RN. PT IS A&OX4 BREATHING EVEN AND UNLABORED ON RA. VSS. PT ENDORSED IN STABLE CONDITION. SBAR GIVEN AND ALL QUESTIONS ANSWERED.
[2021-01-11] MEDS: INSULIN GLARGINE, 100 UNIT/ML CARTRIDGE SQ SCH (22:01)
[2021-01-12] MEDS: MORPHINE SULFATE INJ 2 MG/ML DISP.SYRIN IV PRN ×4 (01:48→20:52)
--- NOTE | 2021-01-12 05:23 | NUR ---
CLOSING NOTES:SLEPT THROUGH THE NIGHT CONTINENT MEDICATED X2 FOR GENERALIZED PAIN AND EFECTIVE MORPHINE IS HIS REQUISTE BLOOD SUGARS RUN HIGH COVERED INSTRUCTED
[2021-01-12] MEDS: BLOOD SUGAR DIAGNOSTIC 1 EACH STRIP VI SCH ×4 (05:51→21:11)
[2021-01-12] MEDS: INSULIN REGULAR, HUMAN 100 UNIT/ML 3 ML VIAL SQ PRN ×2 (06:33→17:52)
[2021-01-12 06:34] LABS: BASOPHILS % (AUTO) 0.1 % (0.0-2.0); EOSINOPHILS % (AUTO) 2.7 % (0.0-6.0); HEMATOCRIT 39 % (39-51); HEMOGLOBIN 13.7 g/dL (13.5-17.5); LYMPHOCYTES # (AUTO) 1.7 K/uL (0.8-4.8); LYMPHOCYTES % (AUTO) 24.7 % (20.0-44.0); MEAN CORPUSCULAR HGB CONC 35 g/dl (31.0-36.0); MEAN CORPUSCULAR VOLUME 84 fL (80-96); MONOCYTES # (AUTO) 0.6 K/uL (0.1-1.30); MONOCYTES % (AUTO) 9.5 % (2.0-12.0); NEUTROPHILS # (AUTO) 4.3 K/uL (1.8-8.9); PLATELET COUNT (AUTO) 157 K/uL (150-450); RED BLOOD CELL COUNT(AUTO) 4.67 MIL/uL (4.5-6.0); WHITE BLOOD COUNT (AUTO) 6.8 K/uL (4.3-11.0)
[2021-01-12 07:04] LABS: CREATININE 0.5 mg/dL (0.6-1.3); PHOSPHORUS 1.6 mg/dL (2.5-4.9); POTASSIUM 3.1 mmol/L (3.5-5.1)
--- NOTE | 2021-01-12 07:30 | NUR ---
MS RN OPENING NOTE RECEIVED PT AWAKE IN BED. A/OX4. PT IS STABLE ON ROOM AIR WITH NO SOB OR S/S OF RESPIRATORY DISTRESS NOTED. IV ACCESS IN RIJ AND REINA PICC LINE INFUSING D5 1/2NS @ 125ML/HR, INTACT AND PATENT. SAFETY PRECAUTIONS MAINTAINED. BED IN LOWEST LOCKED POSITION, HOB ELEVATED, SIDE RAILS UP X2. CALL LIGHT AND TABLE WITHIN REACH. WILL CONTINUE TO MONITOR.
[2021-01-12] MEDS ORDERED: POTASSIUM PHOSPHATE MM 15 MMOL in IV NS 0.9% 250 ML IV SCH (08:30)
[2021-01-12 08:33] VITALS: BP 126/74
[2021-01-12] MEDS: CALCIUM CARBONATE 500 MG TAB.CHEW PO SCH ×2 (08:38→20:50)
[2021-01-12] MEDS: POTASSIUM CL. PREMIX PERIPHER. 50 ML IV SCH ×3 (09:10→10:15)
[2021-01-12] MEDS: POTASSIUM PHOSPHATE MM 7.5 MMOL in IV NS 0.9% 100 ML IV SCH ×2 (09:40→13:27)
[2021-01-12 16:22] VITALS: BP 139/72
--- NOTE | 2021-01-12 19:00 | NUR ---
MS RN CLOSING NOTE PT IS AWAKE IN BED. A/OX4. PT IS STABLE ON ROOM AIR WITH NO SOB OR S/S OF RESPIRATORY DISTRESS NOTED. IV ACCESS IN RIJ AND REINA PICC LINE INFUSING D5 1/2NS @ 125ML/HR, INTACT AND PATENT. ALL NEEDS HAVE BEEN MET. SAFETY PRECAUTIONS MAINTAINED AT ALL TIMES. BED IN LOWEST LOCKED POSITION, HOB ELEVATED, SIDE RAILS UP X2. CALL LIGHT AND TABLE WITHIN REACH. WILL ENDORSE TO ONCOMING NURSE FOR ANNALISE.
--- NOTE | 2021-01-12 19:25 | NUR ---
MS RN OPENING NOTE RECEIVED PT AWAKE IN BED. A/OX4. PT IS STABLE ON ROOM AIR WITH NO SOB OR S/S OF RESPIRATORY DISTRESS NOTED. BREATHING EVEN AND UNLABORED.IV ACCESS IN RIJ AND REINA PICC LINE INFUSING D5 1/2NS @ 125ML/HR, INTACT AND PATENT. SAFETY PRECAUTIONS MAINTAINED AT ALL TIMES. BED IN LOWEST LOCKED POSITION, HOB ELEVATED, SIDE RAILS UP X2. CALL LIGHT AND TABLE WITHIN REACH. WILL CONTINUE TO MONITOR PATIENT ACCORDINGLY.
[2021-01-12] MEDS: ONDANSETRON HCL/PF 4 MG/2 ML VIAL IVP PRN (19:32)
--- NOTE | 2021-01-12 19:35 | NUR ---
RN MS NOTES PATIENT COMPLAINS OF BEING NAUSEOUS, ICE CHIPS GIVEN- NOT EFFECTIVE. PRN ZOFRAN IV GIVEN ORDERED. WILL CONTINUE TO MONITOR
[2021-01-12 20:00] VITALS: BP 123/71
--- NOTE | 2021-01-12 20:59 | NUR ---
RN NOTES PATIENT C/O OF UPPER BACK PAIN P.S=11/06, PRN MORPHINE SULFATE IV GIVEN PRN DOSE AT 2051H. PLACED PT. IN COMFORTABLE POSITION AND WILL CONTINUE TO MONITOR PATIENT ACCORDINGLY.
[2021-01-12] MEDS: INSULIN GLARGINE, 100 UNIT/ML CARTRIDGE SQ SCH (21:21)
[2021-01-13] MEDS: IV D5/0.45 NACL 1,000 ML IV PRN (02:37)
[2021-01-13] MEDS: MORPHINE SULFATE INJ 2 MG/ML DISP.SYRIN IV PRN ×2 (03:00→08:37)
--- NOTE | 2021-01-13 03:00 | NUR ---
RN NOTES PATIENT C/O OF UPPER BACK PAIN P.S=10, PRN MORPHINE SULFATE IV GIVEN PRN DOSE AT 0300H. PLACED PT. IN COMFORTABLE POSITION AND WILL CONTINUE TO MONITOR PATIENT ACCORDINGLY.
--- NOTE | 2021-01-13 04:00 | NUR ---
RN NOTES VISITED PATIENT ON HIS ROOM, SEEN PATIENT COMFORTABLY SLEEPING ON HIS BED AT THIS TIME. NO SOB NOTED, NO C/O PAIN. WILL CONTINUE TO MONITOR PATIENT ACCDGLY
[2021-01-13 06:34] LABS: BASOPHILS % (AUTO) 0.1 % (0.0-2.0); EOSINOPHILS % (AUTO) 2.5 % (0.0-6.0); HEMATOCRIT 38 % (39-51); HEMOGLOBIN 13.3 g/dL (13.5-17.5); LYMPHOCYTES # (AUTO) 1.5 K/uL (0.8-4.8); LYMPHOCYTES % (AUTO) 19.2 % (20.0-44.0); MEAN CORPUSCULAR HGB CONC 35 g/dl (31.0-36.0); MEAN CORPUSCULAR VOLUME 85 fL (80-96); MONOCYTES # (AUTO) 0.8 K/uL (0.1-1.30); MONOCYTES % (AUTO) 10.2 % (2.0-12.0); NEUTROPHILS # (AUTO) 5.3 K/uL (1.8-8.9); PLATELET COUNT (AUTO) 191 K/uL (150-450); WHITE BLOOD COUNT (AUTO) 7.8 K/uL (4.3-11.0)
--- NOTE | 2021-01-13 06:34 | NUR ---
MS RN CLOSING NOTES PT AWAKE IN BED. A/OX4. PT IS STABLE ON ROOM AIR WITH NO SOB OR S/S OF RESPIRATORY DISTRESS NOTED. BREATHING EVEN AND UNLABORED.IV ACCESS IN RIJ AND REINA PICC LINE INFUSING D5 1/2NS @ 125ML/HR, INTACT AND PATENT. SAFETY PRECAUTIONS MAINTAINED AT ALL TIMES. BED IN LOWEST LOCKED POSITION, HOB ELEVATED, SIDE RAILS UP X2. CALL LIGHT AND TABLE WITHIN REACH. WILL ENDORSED PATIENT TO DAY SHIFT NURSE FOR ANNALISE.
[2021-01-13] MEDS: BLOOD SUGAR DIAGNOSTIC 1 EACH STRIP VI SCH (06:39)
[2021-01-13] MEDS: INSULIN REGULAR, HUMAN 100 UNIT/ML 3 ML VIAL SQ PRN (06:43)
[2021-01-13 07:07] LABS: CREATININE 0.6 mg/dL (0.6-1.3); POTASSIUM 3.4 mmol/L (3.5-5.1)
--- NOTE | 2021-01-13 07:50 | NUR ---
RN OPENING NOTES RECEIVED PATIENT AWAKE ON BED. A/OX4. ON ROOM AIR WITH NO SOB OR S/S OF RESPIRATORY DISTRESS NOTED. BREATHING EVEN AND UNLABORED. WITH IV ACCESS IN RIJ AND REINA PICC LINE INFUSING D5 1/2NS @ 125ML/HR, PATENT AND INTACT. SAFETY PRECAUTIONS MAINTAINED AT ALL TIMES. BED IN LOWEST LOCKED POSITION, HOB ELEVATED, SIDE RAILS UP X2. CALL LIGHT AND TABLE WITHIN REACH. WILL CONTINUE TO MONITOR.
[2021-01-13 08:00] VITALS: BP 108/85
[2021-01-13] MEDS ORDERED: Insulin Glargine,Hum SQ ×2 (08:19→08:29)
[2021-01-13] MEDS: CALCIUM CARBONATE 500 MG TAB.CHEW PO SCH (08:37)
--- NOTE | 2021-01-13 09:19 | NUR ---
RN NOTES CALLED PT'S PHARMACY: [facility] AT TEL # [phone], SPOKED TO PHARMACIST ALVINO AND GAVE DR TAPIA VERBAL ORDER OF INSULIN GLARGINE 100U/ML, ADMINISTER SQ 20U @ HS. ALVINO STATED THAT MEDICATION WILL BE READY TO BE PICKED-UP TODAY.
[2021-01-13] MEDS ORDERED: K PHOS NEUTRAL 250 MG TABLET PO SCH (10:00)
[2021-01-13] MEDS ORDERED: POTASSIUM CHLORIDE 20 MEQ TAB.PRT.SR PO SCH (10:00)
== END 2021-01-13 10:45 | disposition home or self-care (01) | DRG 420 ==
LOC: ER 15:33 → ICU 19:49 → MED 01-11 16:37
PROVIDERS: ADMIT Internal Medicine; ATTEND Family Medicine
PROC: 02HV33Z Insertion of Infusion Device into Superior Vena Cava, Percutaneous Approach (ICD-10-PCS; principal; 2021-01-08)
PROC: B548ZZA Ultrasonography of Superior Vena Cava, Guidance (ICD-10-PCS; 2021-01-08)
DX: E10.10 Type 1 diabetes mellitus with ketoacidosis without coma (principal); N17.0 Acute kidney failure with tubular necrosis; E83.39 Other disorders of phosphorus metabolism; E87.1 Hypo-osmolality and hyponatremia; D72.829 Elevated white blood cell count, unspecified; E10.65 Type 1 diabetes mellitus with hyperglycemia; E83.42 Hypomagnesemia; E86.0 Dehydration; E86.1 Hypovolemia; Z79.4 Long term (current) use of insulin; Z91.19 Patient's noncompliance with other medical treatment and regimen; E87.6 Hypokalemia; Z91.14 Patient's other noncompliance with medication regimen; Z20.822 Contact with and (suspected) exposure to COVID-19; Z98.890 Other specified postprocedural states
CPT/HCPCS: 36415; 36569; 36600; 71045-TC; 80048-TC; 80076-TC; 81001; 82010-TC; 82803-TC; 82962-TC; 83605-TC; 83690-TC; 83735-TC; 84100-TC; 84484-TC; 85025-TC; 85730-TC; 86850-TC; 87040-TC; 87081-TC; 97116-TC; 97530-TC; A9563; C9113; G0378; J0696; J1815; J2270; J2405; J2543; J3480; J3490; J7030; J7040; J7050; J7060; J7120

== ENCOUNTER 2021-06-02 15:43 | Emergency (ER) | payer MEDICAID ==
[~2021-06-02] VITALS: Ht 185.4 cm; Wt 71.2 kg
[~2021-06-02 15:43] MED LIST: Insulin Glargine,Hum SQ
[2021-06-02] MEDS ORDERED: IV PREMIX NS +20MEQ KCL 20 MEQ/L BAG IV ONE (15:50)
[2021-06-02] MEDS ORDERED: IV NS 0.9% 1,000 ML BAG IV ONE ×3 (16:30→19:30)
[2021-06-02] MEDS ORDERED: ASPIRIN 81 MG TAB.CHEW PO ONE (16:30)
[2021-06-02] MEDS ORDERED: ONDANSETRON HCL/PF 4 MG/2 ML VIAL IVP ONE (16:30)
--- NOTE | 2021-06-02 16:30 | NUR ---
SALINE LOCK ESTABLISHED, BLOOD DRAWN AND SENT TO LAB
[2021-06-02] MEDS ORDERED: ONDANSETRON HCL/PF 4 MG/2 ML VIAL ONE (16:35)
[2021-06-02] MEDS ORDERED: ASPIRIN 81 MG TAB.CHEW ONE (16:36)
--- NOTE | 2021-06-02 16:50 | NUR ---
UNABLE TO PROVIDE URINE AT THIS TIME
--- NOTE | 2021-06-02 16:52 | NUR ---
COVID SWAB DONE AND SENT TO LAB
[2021-06-02 17:01] LABS: BASOPHILS % (AUTO) 0.1 % (0.0-2.0); HEMATOCRIT 52 % (39-51); HEMOGLOBIN 16.9 g/dL (13.5-17.5); LYMPHOCYTES # (AUTO) 1.2 K/uL (0.8-4.8); LYMPHOCYTES % (AUTO) 6.8 % (20.0-44.0); MEAN CORPUSCULAR HGB CONC 32 g/dl (31.0-36.0); MEAN CORPUSCULAR VOLUME 87 fL (80-96); MONOCYTES # (AUTO) 0.6 K/uL (0.1-1.30); MONOCYTES % (AUTO) 3.3 % (2.0-12.0); NEUTROPHILS # (AUTO) 15.4 K/uL (1.8-8.9); NEUTROPHILS % (AUTO) 89.8 % (43.0-81.0); PLATELET COUNT (AUTO) 456 K/uL (150-450); RED BLOOD CELL COUNT(AUTO) 5.99 MIL/uL (4.5-6.0); WHITE BLOOD COUNT (AUTO) 17.1 K/uL (4.3-11.0)
--- NOTE | 2021-06-02 17:28 | NUR ---
MOVE SHEET SUBMITTED AND CALLED FOR TELE BED.
[2021-06-02 17:33] LABS: CALCIUM, SERUM 9.6 mg/dL (8.5-10.1); CARBON DIOXIDE 20 mmol/L (21-32); CHLORIDE 91 mmol/L (98-107); CREATININE 1.1 mg/dL (0.6-1.3); POTASSIUM 4.2 mmol/L (3.5-5.1); SODIUM SERUM 136 mmol/L (136-145); UREA NITROGEN, BLOOD 34 mg/dL (7-18)
--- NOTE | 2021-06-02 17:33 | NUR ---
CALLED [facility] [phone]
[2021-06-02 17:36] LABS: GLUCOSE 433 mg/dL (74-106)
[2021-06-02 17:43] LABS: ALANINE AMINOTRANSFERASE 17 U/L (12-78); ALBUMIN 3.8 g/dL (3.4-5.0); ALCOHOL, BLOOD < 3 mg/dL (0-0); ALKALINE PHOSPHATASE 100 U/L (46-116); ASPARTATE AMINOTRANSFERASE 5 U/L (15-37); BILIRUBIN,DIRECT 0.2 mg/dL (0.0-0.2); TOTAL PROTEIN, SERUM 7.7 g/dL (6.4-8.2)
[2021-06-02] MEDS ORDERED: ALBU8.5H8 IH (17:55)
[2021-06-02] MEDS ORDERED: INSU100I14 SQ (17:55)
[2021-06-02] MEDS ORDERED: HYDR50TA61 PO (17:55)
[2021-06-02] MEDS ORDERED: INSU100V7 SQ (17:55)
[2021-06-02] MEDS ORDERED: BUSP5TAB3 PO (17:55)
[2021-06-02] MEDS ORDERED: GABA-532 PO (17:55)
[2021-06-02] MEDS ORDERED: CLON0.5T4 PO (17:55)
[2021-06-02] MEDS ORDERED: BUPR-96 PO (17:55)
[2021-06-02] MEDS ORDERED: METH-647 PO (17:55)
[2021-06-02] MEDS ORDERED: INSULIN REGULAR, HUMAN 100 UNITS in IV NS 0.9% 100 ML IV PRN ×2 (18:00)
[2021-06-02] MEDS ORDERED: IV PREMIX NS +20MEQ KCL 1,000 L IV PRN (18:00)
--- NOTE | 2021-06-02 18:06 | NUR ---
CALLED [facility] [phone] DR. COTTON WILL CALL US BACK.
[2021-06-02 18:18] LABS: CALCIUM, SERUM 8.7 mg/dL (8.5-10.1); CREATININE 1.1 mg/dL (0.6-1.3); POTASSIUM 4.1 mmol/L (3.5-5.1)
[2021-06-02 18:21] LABS: MAGNESIUM 2.2 mg/dL (1.8-2.4); PHOSPHORUS 4.2 mg/dL (2.5-4.9)
[2021-06-02] MEDS ORDERED: MORPHINE SULFATE INJ 10 MG/ML DISP.SYRIN IV ONE (18:30)
[2021-06-02 18:35] LABS: ABG BASE EXCESS -9.8 mmol/L; ABG PCO2 30.9 mmHg (35.0-45.0); ABG PH 7.306 (7.350-7.450); ABG PO2 48.2 mmHg (75.0-100.0); COHb 0.4 % (0.5-1.5); MetHb 0.4 % (0.0-1.5); O2Hb 78.6 % (94.0-97.0); SITE, ABG Other; VENT MODE, BG room air
[2021-06-02] MEDS ORDERED: MORPHINE SULFATE INJ 4 MG/ML DISP.SYRIN ONE (18:37)
--- NOTE | 2021-06-02 18:42 | NUR ---
CALLED [facility] [phone] DR. COTTON WILL CALL US BACK.
--- NOTE | 2021-06-02 19:05 | NUR ---
REC'D PT. PT INSULIN RUNNING AT 3U/HR. CONTINUOUS RUNNING PER ORDER
--- NOTE | 2021-06-02 20:19 | NUR ---
PA VERBAL ORDER 15MG TORADOL IV
[2021-06-02] MEDS ORDERED: KETOROLAC TROMETHAMINE 15 MG/ML VIAL ONE (20:20)
[2021-06-02] MEDS ORDERED: KETOROLAC TROMETHAMINE INJ 30 MG/ML VIAL IV ONE (20:30)
[2021-06-02 21:05] LABS: CALCIUM, SERUM 8.4 mg/dL (8.5-10.1); CREATININE 0.9 mg/dL (0.6-1.3); MAGNESIUM 2.3 mg/dL (1.8-2.4); PHOSPHORUS 3.7 mg/dL (2.5-4.9); POTASSIUM 4.2 mmol/L (3.5-5.1)
--- NOTE | 2021-06-02 21:42 | NUR ---
BARBARA MOOREP F/U STILL LOOKING FOR A BED
--- NOTE | 2021-06-02 21:55 | NUR ---
LAB AT BEDSIDE
[2021-06-02 22:23] LABS: CALCIUM, SERUM 8.1 mg/dL (8.5-10.1); CREATININE 0.9 mg/dL (0.6-1.3); POTASSIUM 4.1 mmol/L (3.5-5.1)
[2021-06-02 22:27] LABS: MAGNESIUM 2.1 mg/dL (1.8-2.4); PHOSPHORUS 3.3 mg/dL (2.5-4.9)
--- NOTE | 2021-06-02 23:52 | NUR ---
PT STILL AWAITING TRANSFER. NO BED AT [facility]. INITATIED DKA INSULIN DRIP PROTOCOL PER FACILITY PROTOCOL USING BGX1 /100= UNITS/HR. 169X1/100 = 1.69UNITS/HR. ADJUSTED PER CALCULATION
[2021-06-03] VITALS: BP 116/74
--- NOTE | 2021-06-03 | NUR ---
followed up with [facility] regarding pt transfer. Pt is going to [facility] under the care of Dr. Raya. pt is going to room 2321. call [phone] for report. Pt will be transferred via CCT eta [phone]
--- NOTE | 2021-06-03 00:11 | NUR ---
ATTEMPTED TO GIVE REPORT TO CONSTANTINO JIMENEZ ON BREAK
--- NOTE | 2021-06-03 00:25 | NUR ---
GAVE REPORT TO CONSTANTINO MESSINA FOR ANNALISE
--- NOTE | 2021-06-03 00:30 | NUR ---
BG 205. PER INSULIN DRIP PROTOCOL 205X1 /100= 2.05U/HR
--- NOTE | 2021-06-03 01:02 | NUR ---
GAVE REPORT TO EMS
== END 2021-06-03 01:15 | disposition short-term general hospital (02) ==
LOC: ER 15:49
DX: E10.10 Type 1 diabetes mellitus with ketoacidosis without coma (principal); Z79.4 Long term (current) use of insulin; E86.0 Dehydration; E87.8 Other disorders of electrolyte and fluid balance, not elsewhere classified; F15.10 Other stimulant abuse, uncomplicated; R79.89 Other specified abnormal findings of blood chemistry; Z20.822 Contact with and (suspected) exposure to COVID-19; R00.0 Tachycardia, unspecified; D72.829 Elevated white blood cell count, unspecified; Z79.899 Other long term (current) drug therapy; R10.84 Generalized abdominal pain
CPT/HCPCS: 36415; 36600; 71045; 80048 ×4; 80076; 80320; 82010; 82803; 82962 ×7; 83605 ×2; 83735 ×4; 84100 ×3; 84145; 84484; 85025; 87040 ×2; 87086; 87426; 93005; 96361 ×2; 96365; 96366; 96374; 96375; 99291; C9803; J1815; J1885; J2270; J2405; J3490; J7030 ×3; G0480

== ENCOUNTER 2021-08-23 11:00 | Emergency (ER) | payer MEDICAID ==
[~2021-08-23] VITALS: Ht 182.9 cm; Wt 61.7 kg
[~2021-08-23 11:00] MED LIST changes: +ALBU8.5H8 IH; +BUPR-96 PO; +BUSP5TAB3 PO; +CLON0.5T4 PO; +GABA-532 PO; +HYDR50TA61 PO; +INSU100I14 SQ; +INSU100V7 SQ; -Insulin Glargine,Hum SQ; +METH-647 PO
--- NOTE | 2021-08-23 11:15 | NUR ---
sitter 1:1 at bedside
--- NOTE | 2021-08-23 11:17 | NUR ---
SANDRA SILVA 20G. LABS DRAWN AND COLLECTED.
--- NOTE | 2021-08-23 11:21 | NUR ---
URINE COLLECTED AND SENT
--- NOTE | 2021-08-23 11:29 | NUR ---
STEVEN GARCIA (MOTHER) [phone]. MINH (SISTER) [phone].
[2021-08-23 11:47] LABS: BASOPHILS % (AUTO) 0.6 % (0.0-2.0); EOSINOPHILS % (AUTO) 0.5 % (0.0-6.0); HEMATOCRIT 38 % (39-51); HEMOGLOBIN 12.8 g/dL (13.5-17.5); LYMPHOCYTES # (AUTO) 1.5 K/uL (0.8-4.8); LYMPHOCYTES % (AUTO) 21.6 % (20.0-44.0); MEAN CORPUSCULAR HGB CONC 34 g/dl (31.0-36.0); MEAN CORPUSCULAR VOLUME 86 fL (80-96); MONOCYTES # (AUTO) 0.4 K/uL (0.1-1.30); MONOCYTES % (AUTO) 5.6 % (2.0-12.0); NEUTROPHILS % (AUTO) 71.7 % (43.0-81.0); PLATELET COUNT (AUTO) 408 K/uL (150-450); RED BLOOD CELL COUNT(AUTO) 4.42 MIL/uL (4.5-6.0)
[2021-08-23 12:07] LABS: BILIRUBIN,URINE NEGATIVE (NEGATIVE); COLOR,URINE YELLOW (YELLOW); LEUKOCYTE ESTERASE ,URINE NEGATIVE (NEGATIVE); NITRITE, URINE NEGATIVE (NEGATIVE); PH,URINE 7.5 (5.0-8.0); PROTEIN,URINE NEGATIVE (NEGATIVE); UGLUCOSE >=1000 mg/dL (NEGATIVE); UROBILINOGEN,URINE 0.2 EU/dL (0.2)
[2021-08-23 12:12] LABS: CALCIUM, SERUM 8.4 mg/dL (8.5-10.1); CARBON DIOXIDE 29 mmol/L (21-32); CHLORIDE 94 mmol/L (98-107); CREATININE 0.4 mg/dL (0.6-1.3); SODIUM SERUM 129 mmol/L (136-145); UREA NITROGEN, BLOOD 6 mg/dL (7-18)
[2021-08-23 12:14] LABS: GLUCOSE 395 mg/dL (74-106)
[2021-08-23 12:19] LABS: ALANINE AMINOTRANSFERASE 14 U/L (12-78); ALBUMIN 3.3 g/dL (3.4-5.0); ALCOHOL, BLOOD < 3 mg/dL (0-0); ALKALINE PHOSPHATASE 77 U/L (46-116); ASPARTATE AMINOTRANSFERASE 10 U/L (15-37); BILIRUBIN,DIRECT 0.1 mg/dL (0.0-0.2); BILIRUBIN,TOTAL 0.4 mg/dL (0.2-1.0); TOTAL PROTEIN, SERUM 6.5 g/dL (6.4-8.2)
[2021-08-23 12:25] LABS: BACTERIA,URINE Rare /HPF (None Seen); RBC,URINE 0-2 /HPF (0-2); SQUAMOUS EPITHELIAL CELL,UR Rare /HPF (None Seen); WBC,URINE 0-2 /HPF (0-3)
[2021-08-23] MEDS ORDERED: INSULIN REGULAR, HUMAN 100 UNIT/ML 10 ML VIAL SQ ONE ×2 (12:30→15:30)
[2021-08-23 12:35] LABS: ACETAMINOPHEN < 2 ug/ml (10-30)
--- NOTE | 2021-08-23 12:50 | NUR ---
GLORIA OBTAINED AND SENT TO LAB
--- NOTE | 2021-08-23 12:59 | NUR ---
CALLED [facility] AND OPENED UP CASE FOR A PT AND WAS ALSO NOTIFIED OF PT ADMISSION STATUS. AWAITING A CALL BACK FROM YEOMAN DOCTOR
[2021-08-23] MEDS ORDERED: IV NS 0.9% 1,000 ML BAG IV ONE ×2 (13:30→15:30)
[2021-08-23] MEDS ORDERED: IV NS 0.9% 500 ML BAG IV ONE (13:30)
[2021-08-23] MEDS ORDERED: LORAZEPAM INJ 2 MG/ML VIAL IV ONE (14:30)
[2021-08-23] MEDS ORDERED: LORAZEPAM 1 MG TABLET ONE (14:40)
[2021-08-23 16:15] LABS: CALCIUM, SERUM 8.2 mg/dL (8.5-10.1); CREATININE 0.5 mg/dL (0.6-1.3); POTASSIUM 4.3 mmol/L (3.5-5.1)
--- NOTE | 2021-08-23 18:10 | NUR ---
SPOKE TO ADRIAN [phone] PT ACCEPTED TO [facility] UNDER DR MORSE [phone] BLS PRN TRANSPORTATION ETS [phone]
[2021-08-23 18:32] VITALS: BP 104/66
--- NOTE | 2021-08-23 19:37 | NUR ---
PRN AT BED SIDE TO LARD MAKER THE PT
--- NOTE | 2021-08-23 19:40 | NUR ---
CALLED [facility] TO GIVE REPORT. THEY HUNG UP ON ME
--- NOTE | 2021-08-23 19:42 | NUR ---
CALLED BARBARA YUN TO GIVE REPORT; PER JACE RN CALL BACK FOR REPORT
--- NOTE | 2021-08-23 20:00 | NUR ---
PLACED A THIRD CALL TO EUREKA TO GIVE REPORT. REMAINED ON HOLD FOR 15 MIN. NO ANSWER
[2021-08-23] MEDS ORDERED: IBUPROFEN 600 MG TABLET ONE (20:01)
--- NOTE | 2021-08-23 20:15 | NUR ---
pt was transferred to [facility]
[2021-08-23] MEDS ORDERED: IBUPROFEN 600 MG TABLET PO ONE (20:30)
== END 2021-08-23 20:44 | disposition short-term general hospital (02) ==
LOC: ER 11:02
DX: E10.65 Type 1 diabetes mellitus with hyperglycemia (principal); Z79.4 Long term (current) use of insulin; Z91.14 Patient's other noncompliance with medication regimen; R45.851 Suicidal ideations; Z20.822 Contact with and (suspected) exposure to COVID-19
CPT/HCPCS: 36415; 80048 ×2; 80076; 80143; 80307; 80320; 81001; 82962 ×3; 85025; 87426; 96360; 96361 ×2; 96372 ×2; 99285; C9803; J1815; J7030 ×2; J7040; G0480

== ENCOUNTER 2021-11-05 12:12 | Inpatient (IN) | payer MEDICAID ==
[~2021-11-05] VITALS: Ht 182.9 cm; Wt 63.5 kg
--- NOTE | 2021-11-05 12:30 | NUR ---
BIBRA78 FROM HOME C/O WEAKNESS, STATES RAN OUT OF INSULIN, BG 456 EPIDEMIOLOGY INTERN. PT WAS GIVEN 1L NS IN THE FIELD. TO ER BED 3, HOOKED TO MONITOR, CHANGED TO HOSP GOWN, WARM BLANKET PROVIDED. PATIENT AAO x 4. PATIENT APPEARS WEAK, BREATHING UNLABORED. AWAITING MD NORMAN.
--- NOTE | 2021-11-05 12:42 | NUR ---
DR SQUIRES AT BEDSIDE
[2021-11-05 13:29] LABS: BASOPHILS % (AUTO) 0.3 % (0.0-2.0); EOSINOPHILS % (AUTO) 0.5 % (0.0-6.0); HEMATOCRIT 40 % (39-51); HEMOGLOBIN 13.3 g/dL (13.5-17.5); LYMPHOCYTES # (AUTO) 1.6 K/uL (0.8-4.8); LYMPHOCYTES % (AUTO) 17.3 % (20.0-44.0); MEAN CORPUSCULAR HGB CONC 33 g/dl (31.0-36.0); MEAN CORPUSCULAR VOLUME 86 fL (80-96); MONOCYTES # (AUTO) 0.4 K/uL (0.1-1.30); NEUTROPHILS # (AUTO) 7.2 K/uL (1.8-8.9); NEUTROPHILS % (AUTO) 77.9 % (43.0-81.0); PLATELET COUNT (AUTO) 413 K/uL (150-450); RED BLOOD CELL COUNT(AUTO) 4.69 MIL/uL (4.5-6.0); WHITE BLOOD COUNT (AUTO) 9.3 K/uL (4.3-11.0)
[2021-11-05] MEDS ORDERED: IV NS 0.9% 2,000 ML IV ONE (13:30)
[2021-11-05] MEDS ORDERED: LORAZEPAM INJ 2 MG/ML VIAL IV ONE (13:30)
[2021-11-05] MEDS ORDERED: ONDANSETRON HCL/PF 4 MG/2 ML VIAL IV ONE (13:30)
[2021-11-05] MEDS ORDERED: ONDANSETRON HCL/PF 4 MG/2 ML VIAL ONE (13:30)
[2021-11-05] MEDS ORDERED: LORAZEPAM INJ 2 MG/ML VIAL ONE (13:30)
[2021-11-05 13:55] LABS: BILIRUBIN,DIRECT 0.1 mg/dL (0.0-0.2); BILIRUBIN,TOTAL 0.4 mg/dL (0.2-1.0); CALCIUM, SERUM 8.9 mg/dL (8.5-10.1); CREATININE 0.6 mg/dL (0.6-1.3); POTASSIUM 4.1 mmol/L (3.5-5.1); TOTAL PROTEIN, SERUM 6.7 g/dL (6.4-8.2)
--- NOTE | 2021-11-05 14:35 | NUR ---
URINE SAMPLE COLLECTED AND SENT TO LAB
[2021-11-05] MEDS ORDERED: INSULIN REGULAR, HUMAN 100 UNITS in IV NS 0.9% 100 ML IV STA ×2 (14:36)
--- NOTE | 2021-11-05 14:38 | NUR ---
RAPID COVID DONE AND SENT TO LAB
--- NOTE | 2021-11-05 14:47 | NUR ---
CALLED [facility] [phone] DR. SCHROEDER WILL CALL US BACK.
[2021-11-05] MEDS ORDERED: IV PREMIX NS +20MEQ KCL 1 L IV PRN (15:00)
[2021-11-05 15:11] LABS: BILIRUBIN,URINE NEGATIVE (NEGATIVE); COLOR,URINE YELLOW (YELLOW); LEUKOCYTE ESTERASE ,URINE NEGATIVE (NEGATIVE); NITRITE, URINE NEGATIVE (NEGATIVE); PH,URINE 5.5 (5.0-8.0); PROTEIN,URINE NEGATIVE (NEGATIVE); UGLUCOSE >=1000 mg/dL (NEGATIVE); UROBILINOGEN,URINE 0.2 EU/dL (0.2)
[2021-11-05 15:31] LABS: CALCIUM, SERUM 8.4 mg/dL (8.5-10.1); CREATININE 0.5 mg/dL (0.6-1.3); MAGNESIUM 1.9 mg/dL (1.8-2.4); PHOSPHORUS 3.3 mg/dL (2.5-4.9)
--- NOTE | 2021-11-05 15:32 | NUR ---
PROVIDED W SALTINE CRACKERS AND WATER
[2021-11-05] MEDS: BLOOD SUGAR DIAGNOSTIC 1 EACH STRIP IN SCH ×6 (15:43→21:41)
[2021-11-05] MEDS ORDERED: MAGNESIUM HYDROXIDE 30 ML UDC PO PRN (16:00)
[2021-11-05] MEDS ORDERED: ZOLPIDEM TARTRATE 5 MG TABLET PO PRN (16:00)
[2021-11-05] MEDS ORDERED: ENOXAPARIN SODIUM 40 MG/0.4 ML DISP.SYRIN SQ SCH (16:00)
[2021-11-05] MEDS ORDERED: Z GUARD REMEDY 4 OZ OINT TP PRN (16:00)
[2021-11-05] MEDS ORDERED: ONDANSETRON HCL/PF 4 MG/2 ML VIAL IVP PRN (16:00)
[2021-11-05] MEDS ORDERED: INSULIN REGULAR, HUMAN 100 UNIT in IV NS 0.9% 99 ML IV PRN ×2 (16:00)
[2021-11-05] MEDS ORDERED: IV LR 1000 ML 1,000 ML IV PRN (16:00)
[2021-11-05] MEDS ORDERED: ACETAMINOPHEN 325 MG TABLET PO PRN (16:00)
[2021-11-05] MEDS ORDERED: MAG HYDROX/AL HYDROX/SIMETH 30 ML UDC PO PRN (16:00)
[2021-11-05 16:18] LABS: BACTERIA,URINE None seen /HPF (None Seen); RBC,URINE 0-2 /HPF (0-2); SQUAMOUS EPITHELIAL CELL,UR 0-2 /HPF (None Seen); WBC,URINE 0-2 /HPF (0-3)
[2021-11-05 16:33] LABS: CHOLESTEROL 180 mg/dL (<200); HDL CHOLESTEROL 75 mg/dL (40-60); LDL 90 mg/dL (0-99); TRIGLYCERIDES 72 mg/dL (30-150)
--- NOTE | 2021-11-05 16:49 | NUR ---
RT ABG drawn on room air. RAPID currently unable to transfer results at this time. PH 7.35 CO2 30.5 PO2 102.1 HCO3 16.5 BE -7.9
--- NOTE | 2021-11-05 17:04 | NUR ---
[facility]ED [facility] CONTACT [facility] WITH ACCEPTING INFO.
[2021-11-05 17:38] LABS: ABG BASE EXCESS -7.9 mmol/L; ABG PCO2 30.5 mmHg (35.0-45.0); ABG PO2 102.1 mmHg (75.0-100.0); COHb 0.3 % (0.5-1.5); MetHb 0.2 % (0.0-1.5); O2Hb 96.4 % (94.0-97.0); SITE, ABG Right Radial; VENT MODE, BG Room Air
--- NOTE | 2021-11-05 17:38 | NUR ---
ZBIGNIEW MEEKS [facility]: [facility] ER TO ER REPORT [phone] ACCEPTING [facility] ETA 2030 PRN AMBULANCE.
[2021-11-05 17:40] LABS: CALCIUM, SERUM 6.9 mg/dL (8.5-10.1); CREATININE 0.4 mg/dL (0.6-1.3); POTASSIUM 5.9 mmol/L (3.5-5.1)
[2021-11-05 17:46] LABS: MAGNESIUM 1.2 mg/dL (1.8-2.4); PHOSPHORUS 2.3 mg/dL (2.5-4.9)
[2021-11-05] MEDS ORDERED: ENOXAPARIN SODIUM 40 MG/0.4 ML DISP.SYRIN SQ ONE (18:00)
--- NOTE | 2021-11-05 18:23 | NUR ---
[facility] DINNER TRAY PROVIDED. PATIENT TOLERATEING WELL
[2021-11-05 18:42] LABS: CREATININE 0.5 mg/dL (0.6-1.3)
--- NOTE | 2021-11-05 18:42 | NUR ---
REPORT GIVEN TO MARGRET MEEKS OR MAGO ESTEVEZ
[2021-11-05 18:47] LABS: MAGNESIUM 1.3 mg/dL (1.8-2.4); PHOSPHORUS 2.2 mg/dL (2.5-4.9)
--- NOTE | 2021-11-05 19:34 | NUR ---
ENDORSEMENT GIVEN TO AMINTA MEEKS FOR CONTINUITY OF CARE
[2021-11-05 20:15] VITALS: BP 112/71
[2021-11-05 20:36] LABS: CREATININE 0.5 mg/dL (0.6-1.3); POTASSIUM 3.1 mmol/L (3.5-5.1)
--- NOTE | 2021-11-05 21:31 | NUR ---
UPDATED ETA 220
--- NOTE | 2021-11-05 21:39 | NUR ---
PRN UNIT 109 AT BEDSIDE FOR TRANSPORT TO [facility]. REPORT GIVEN TO [facility]ORY CARE DIRECTORZULEMA. FOR ANNALISE.
[2021-11-06] MEDS ORDERED: PANTOPRAZOLE 40 MG VIAL IV SCH (09:00)
[2021-11-06] MEDS ORDERED: INSULIN GLARGINE, 100 UNIT/ML CARTRIDGE SQ SCH (09:30)
[2021-11-06] MEDS ORDERED: INSULIN REGULAR, HUMAN 100 UNIT/ML 3 ML VIAL SQ PRN (09:30)
[2021-11-06] MEDS ORDERED: DEXTROSE 50%-WATER 50 ML DISP.SYRIN IV PRN (09:30)
[2021-11-06] MEDS ORDERED: BLOOD SUGAR DIAGNOSTIC 1 EACH STRIP IN SCH (12:00)
[2021-11-07] MEDS ORDERED: PANTOPRAZOLE 40 MG TABLET.DR PO SCH (10:00)
== END 2021-11-07 14:59 | disposition short-term general hospital (02) | DRG 420 ==
LOC: ER 12:14 → TRANSITION 15:25
PROVIDERS: ADMIT Nurse Practitioner Acute Care; ATTEND Nurse Practitioner Acute Care
DX: E11.10 Type 2 diabetes mellitus with ketoacidosis without coma (principal); E87.8 Other disorders of electrolyte and fluid balance, not elsewhere classified; E87.1 Hypo-osmolality and hyponatremia; E83.42 Hypomagnesemia; Z20.822 Contact with and (suspected) exposure to COVID-19; F32.A Depression, unspecified; Z91.14 Patient's other noncompliance with medication regimen; Z79.4 Long term (current) use of insulin; Z79.899 Other long term (current) drug therapy; Z79.51 Long term (current) use of inhaled steroids; J45.909 Unspecified asthma, uncomplicated; E87.5 Hyperkalemia; E11.40 Type 2 diabetes mellitus with diabetic neuropathy, unspecified; E87.6 Hypokalemia
CPT/HCPCS: 36415; 36600; 80048-TC; 80061-TC; 80076-TC; 81001; 82803-TC; 82962-TC; 83690-TC; 83735-TC; 84100-TC; 85025-TC; G0378; J1650; J1815; J2060; J2405; J3490; J7030; J7120

== ENCOUNTER 2021-11-19 14:45 | Emergency (ER) | payer MEDICAID ==
[~2021-11-19] VITALS: Ht 182.9 cm; Wt 68.0 kg
--- NOTE | 2021-11-19 14:54 | NUR ---
FAY RA889 "From Home Abdominal Pain/Nausea/vomiting BS-567 iven zofran 4mg NS 1L". PLACED ON BED, AAOX4, BREATHING EVEN AND UNLABORED SATURATING AT 97%, IN PAIN 10/10 PS.
--- NOTE | 2021-11-19 15:15 | NUR ---
AT BED SIDE
--- NOTE | 2021-11-19 15:18 | NUR ---
BLOOD DWRAWN AND URINE SAMPLE SENT TO LAB
[2021-11-19 15:23] LABS: BASOPHILS % (AUTO) 0.6 % (0.0-2.0); EOSINOPHILS % (AUTO) 0.1 % (0.0-6.0); HEMATOCRIT 40 % (39-51); LYMPHOCYTES % (AUTO) 14.6 % (20.0-44.0); MEAN CORPUSCULAR HGB CONC 33 g/dl (31.0-36.0); MEAN CORPUSCULAR VOLUME 85 fL (80-96); MONOCYTES # (AUTO) 0.2 K/uL (0.1-1.30); MONOCYTES % (AUTO) 3.2 % (2.0-12.0); NEUTROPHILS # (AUTO) 5.4 K/uL (1.8-8.9); NEUTROPHILS % (AUTO) 81.5 % (43.0-81.0); PLATELET COUNT (AUTO) 645 K/uL (150-450); WHITE BLOOD COUNT (AUTO) 6.6 K/uL (4.3-11.0)
[2021-11-19] MEDS ORDERED: IV NS 0.9% 1,000 ML BAG IV ONE (15:30)
[2021-11-19 15:40] LABS: BILIRUBIN,URINE NEGATIVE (NEGATIVE); COLOR,URINE YELLOW (YELLOW); LEUKOCYTE ESTERASE ,URINE NEGATIVE (NEGATIVE); NITRITE, URINE NEGATIVE (NEGATIVE); PROTEIN,URINE NEGATIVE (NEGATIVE); UGLUCOSE >=1000 mg/dL (NEGATIVE); UROBILINOGEN,URINE 0.2 EU/dL (0.2)
[2021-11-19 15:41] LABS: ALBUMIN 2.8 g/dL (3.4-5.0); BILIRUBIN,DIRECT 0.1 mg/dL (0.0-0.2); BILIRUBIN,TOTAL 0.4 mg/dL (0.2-1.0); CALCIUM, SERUM 8.7 mg/dL (8.5-10.1); CREATININE 0.8 mg/dL (0.6-1.3); POTASSIUM 4.5 mmol/L (3.5-5.1); TOTAL PROTEIN, SERUM 6.8 g/dL (6.4-8.2)
[2021-11-19 15:48] LABS: BACTERIA,URINE None seen /HPF (None Seen); RBC,URINE 0-2 /HPF (0-2); SQUAMOUS EPITHELIAL CELL,UR 0-2 /HPF (None Seen); WBC,URINE 0-2 /HPF (0-3)
[2021-11-19] MEDS ORDERED: MAG HYDROX/AL HYDROX/SIMETH 30 ML UDC ONE (15:51)
[2021-11-19] MEDS ORDERED: LIDOCAINE VISCOUS 2% UD 15 ML UDC ONE (15:51)
[2021-11-19] MEDS ORDERED: ONDANSETRON HCL/PF 4 MG/2 ML VIAL ONE (15:51)
[2021-11-19] MEDS ORDERED: KETOROLAC TROMETHAMINE 15 MG/ML VIAL ONE (15:51)
[2021-11-19] MEDS ORDERED: KETOROLAC TROMETHAMINE INJ 30 MG/ML VIAL IV ONE (16:00)
[2021-11-19] MEDS ORDERED: ONDANSETRON HCL/PF - ER 4 MG/2 ML VIAL IV ONE (16:00)
[2021-11-19] MEDS ORDERED: LIDOCAINE VISCOUS 2% UD 15 ML UDC MM ONE (16:00)
[2021-11-19] MEDS ORDERED: MAG HYDROX/AL HYDROX/SIMETH 30 ML UDC PO ONE (16:00)
--- NOTE | 2021-11-19 16:07 | NUR ---
U/S TECH. AT BED SIDE
[2021-11-19] MEDS ORDERED: ONDA4TAB11 PO (17:37)
--- NOTE | 2021-11-19 18:03 | NUR ---
CALLED MOTHER STEVEN [phone]
--- NOTE | 2021-11-19 18:15 | NUR ---
IV removed. Catheter intact and site benign. Pressure and 4x4 applied to site. No bleeding noted.Patient discharged to home in stable condition. Written and verbal after care instructions given. Patient verbalizes understanding of instruction.
[2021-11-19 19:00] VITALS: BP 106/75
== END 2021-11-19 18:15 | disposition home or self-care (01) ==
LOC: ER 14:47
DX: R10.13 Epigastric pain (principal); E10.65 Type 1 diabetes mellitus with hyperglycemia; F32.A Depression, unspecified; F17.200 Nicotine dependence, unspecified, uncomplicated; Z98.890 Other specified postprocedural states
CPT/HCPCS: 99284; 96374; 76705; 96361; 96375; 85025; 80048; 82010; 83690; 80076; 81001; 36415; 82962; J2405; J1885

== ENCOUNTER 2022-02-23 16:25 | Emergency (ER) | payer MEDICAID ==
[~2022-02-23] VITALS: Ht 182.9 cm; Wt 67.6 kg
[~2022-02-23 16:25] MED LIST changes: -ALBU8.5H8 IH; -BUPR-96 PO; -BUSP5TAB3 PO; -CLON0.5T4 PO; -GABA-532 PO; -HYDR50TA61 PO; -INSU100I14 SQ; -INSU100V7 SQ; -METH-647 PO; +ONDA4TAB11 PO
[2022-02-23] MEDS ORDERED: IV NS 0.9% 1,000 ML BAG IV ONE ×4 (17:30→21:30)
[2022-02-23 17:35] LABS: BASOPHILS % (AUTO) 0.3 % (0.0-2.0); EOSINOPHILS % (AUTO) 0.6 % (0.0-6.0); HEMATOCRIT 37 % (39-51); HEMOGLOBIN 12.1 g/dL (13.5-17.5); LYMPHOCYTES # (AUTO) 1.2 K/uL (0.8-4.8); LYMPHOCYTES % (AUTO) 19.4 % (20.0-44.0); MEAN CORPUSCULAR HGB CONC 33 g/dl (31.0-36.0); MEAN CORPUSCULAR VOLUME 90 fL (80-96); MONOCYTES # (AUTO) 0.4 K/uL (0.1-1.30); MONOCYTES % (AUTO) 6.6 % (2.0-12.0); NEUTROPHILS # (AUTO) 4.5 K/uL (1.8-8.9); NEUTROPHILS % (AUTO) 73.1 % (43.0-81.0); PLATELET COUNT (AUTO) 436 K/uL (150-450); RED BLOOD CELL COUNT(AUTO) 4.11 MIL/uL (4.5-6.0); WHITE BLOOD COUNT (AUTO) 6.2 K/uL (4.3-11.0)
[2022-02-23 17:46] LABS: CALCIUM, SERUM 7.9 mg/dL (8.5-10.1); CARBON DIOXIDE 27 mmol/L (21-32); CHLORIDE 89 mmol/L (98-107); CREATININE 0.7 mg/dL (0.6-1.3); POTASSIUM 3.2 mmol/L (3.5-5.1); SODIUM SERUM 124 mmol/L (136-145); UREA NITROGEN, BLOOD 7 mg/dL (7-18)
[2022-02-23 17:50] LABS: ALANINE AMINOTRANSFERASE 17 U/L (12-78); ALKALINE PHOSPHATASE 97 U/L (46-116); ASPARTATE AMINOTRANSFERASE 11 U/L (15-37); BILIRUBIN,DIRECT 0.1 mg/dL (0.0-0.2); BILIRUBIN,TOTAL 0.3 mg/dL (0.2-1.0); LIPASE 230 U/L (73-393); TOTAL PROTEIN, SERUM 6.1 g/dL (6.4-8.2)
[2022-02-23 17:51] LABS: GLUCOSE 654 mg/dL (74-106)
--- NOTE | 2022-02-23 18:00 | NUR ---
pt roomed to ed bed 06. 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 seen and evaluated by dr schwab. w/ order. will carry out.
--- NOTE | 2022-02-23 18:42 | NUR ---
medicated as ordered. see emar.
[2022-02-23] MEDS ORDERED: INSULIN REGULAR, HUMAN 100 UNIT/ML 10 ML VIAL SQ ONE (19:00)
[2022-02-23] MEDS ORDERED: INSULIN REGULAR, HUMAN 100 UNIT/ML 10 ML VIAL ONE (19:03)
[2022-02-23] MEDS ORDERED: POTASSIUM CL. PREMIX PERIPHER. 200 ML ONE (19:03)
[2022-02-23] MEDS: POTASSIUM CL. PREMIX PERIPHER. 50 ML IV SCH ×4 (19:20→22:00)
[2022-02-23] MEDS ORDERED: Calcium Gluconate 1GM/10ML 4.65 MEQ in IV NS 0.9% 100 ML IV ONE (20:30)
--- NOTE | 2022-02-23 20:59 | NUR ---
DR MCCLURE FROM [facility] ON THE PHONE WITH DR THOMAS
--- NOTE | 2022-02-23 21:44 | NUR ---
ACCEPTED AT [facility]. GOING TO ER, UNDER CARE OF DR LAWRENCE, # FOR REPORT; [phone]. BS TRRNSPORTATION W/ ETA: 2015
[2022-02-23] MEDS ORDERED: Calcium Gluconate 0.465 MEQ/ML VIAL IV ONE (21:51)
[2022-02-23 21:52] LABS: SITE, VBG Other; VBG COHb 1.1 %; VBG MetHb 0.2 %; VBG O2Hb 94.4 %; VENT MODE, VBG Room Air
--- NOTE | 2022-02-23 22:05 | NUR ---
REPORT GIVEN TO PANKAJ AT [facility]
[2022-02-23 22:16] VITALS: BP 113/62
--- NOTE | 2022-02-23 22:22 | NUR ---
PT PICKED UP BY [facility] FOR TRANSFER TO [facility]. REPORT GIVEN TO GLOBAL ENGINEERING MANAGER. COPIES OF PT CHART AND IMAGING PROVIDED TRANSFER FORM COMPLETED. V/S WNL.
[2022-02-23 22:28] LABS: BILIRUBIN,URINE NEGATIVE (NEGATIVE); COLOR,URINE OTHER (YELLOW); LEUKOCYTE ESTERASE ,URINE NEGATIVE (NEGATIVE); NITRITE, URINE NEGATIVE (NEGATIVE); PROTEIN,URINE NEGATIVE (NEGATIVE); UGLUCOSE 3+ mg/dL (NEGATIVE); UROBILINOGEN,URINE 0.2 EU/dL (0.2)
[2022-02-24 00:13] LABS: BACTERIA,URINE Rare /HPF (None Seen); RBC,URINE 0-2 /HPF (0-2); SQUAMOUS EPITHELIAL CELL,UR Rare /HPF (None Seen); WBC,URINE 0-2 /HPF (0-3)
== END 2022-02-23 22:38 | disposition short-term general hospital (02) ==
LOC: ER 16:34
DX: E10.65 Type 1 diabetes mellitus with hyperglycemia (principal); Z20.822 Contact with and (suspected) exposure to COVID-19; I38 Endocarditis, valve unspecified; R94.31 Abnormal electrocardiogram [ECG] [EKG]; Z86.59 Personal history of other mental and behavioral disorders
CPT/HCPCS: 99291; 96365; 96361; 71045; 87426; 93005; 82803; 85025; 80048; 87086; 83690; 80076; 81001; 36415; 84484; 82962; 96372; J0610; J1815; J7030; J3480; C9803

== ENCOUNTER 2022-06-14 09:07 | Emergency (ER) | payer MEDICAID ==
[~2022-06-14] VITALS: Ht 185.4 cm; Wt 54.0 kg
[2022-06-14] MEDS ORDERED: IV NS 0.9% 1,000 ML BAG IV ONE (09:30)
--- NOTE | 2022-06-14 09:30 | NUR ---
pleb tech at bedside drawn bld
[2022-06-14 09:51] LABS: BASOPHILS % (AUTO) 0.2 % (0.0-2.0); HEMATOCRIT 31 % (39-51); LYMPHOCYTES # (AUTO) 0.5 K/uL (0.8-4.8); LYMPHOCYTES % (AUTO) 3.9 % (20.0-44.0); MEAN CORPUSCULAR HGB CONC 32 g/dl (31.0-36.0); MEAN CORPUSCULAR VOLUME 90 fL (80-96); MONOCYTES # (AUTO) 0.5 K/uL (0.1-1.30); MONOCYTES % (AUTO) 3.9 % (2.0-12.0); NEUTROPHILS # (AUTO) 11.4 K/uL (1.8-8.9); RED BLOOD CELL COUNT(AUTO) 3.47 MIL/uL (4.5-6.0); WHITE BLOOD COUNT (AUTO) 12.4 K/uL (4.3-11.0)
--- NOTE | 2022-06-14 09:53 | NUR ---
urine sent to lab
[2022-06-14 09:55] LABS: PLATELET COUNT (AUTO) 911 K/uL (150-450)
[2022-06-14 10:13] LABS: CALCIUM, SERUM 9.6 mg/dL (8.5-10.1); CARBON DIOXIDE 29 mmol/L (21-32); CHLORIDE 92 mmol/L (98-107); CREATININE 0.7 mg/dL (0.6-1.3); POTASSIUM 3.9 mmol/L (3.5-5.1); SODIUM SERUM 132 mmol/L (136-145); UREA NITROGEN, BLOOD 12 mg/dL (7-18)
[2022-06-14 10:15] LABS: GLUCOSE 580 mg/dL (74-106)
--- NOTE | 2022-06-14 10:16 | NUR ---
CRITICAL LAB GLU 580. DR OVIEDO MADE AWARE
[2022-06-14 10:23] LABS: BILIRUBIN,URINE NEGATIVE (NEGATIVE); COLOR,URINE YELLOW (YELLOW); LEUKOCYTE ESTERASE ,URINE NEGATIVE (NEGATIVE); NITRITE, URINE NEGATIVE (NEGATIVE); PROTEIN,URINE NEGATIVE (NEGATIVE); UGLUCOSE 3+ mg/dL (NEGATIVE); UROBILINOGEN,URINE 0.2 EU/dL (0.2)
[2022-06-14 10:35] LABS: BACTERIA,URINE None seen /HPF (None Seen); RBC,URINE NONE SEEN /HPF (0-2); SQUAMOUS EPITHELIAL CELL,UR Rare /HPF (None Seen); WBC,URINE 0-2 /HPF (0-3)
[2022-06-14 10:41] LABS: BILIRUBIN,DIRECT 0.2 mg/dL (0.0-0.2); BILIRUBIN,TOTAL 0.6 mg/dL (0.2-1.0)
[2022-06-14 10:42] LABS: ACETAMINOPHEN < 10 ug/ml (10-30); ALANINE AMINOTRANSFERASE 19 U/L (12-78); ALCOHOL, BLOOD < 3 mg/dL (0-0); ALKALINE PHOSPHATASE 149 U/L (46-116); ASPARTATE AMINOTRANSFERASE 18 U/L (15-37); TOTAL PROTEIN, SERUM 8.1 g/dL (6.4-8.2)
[2022-06-14] MEDS ORDERED: INSULIN REGULAR, HUMAN 100 UNIT/ML 10 ML VIAL SQ ONE (11:00)
[2022-06-14] MEDS ORDERED: AZITHROMYCIN 500 MG in IV D5W 250 ML IV ONE (11:00)
[2022-06-14] MEDS ORDERED: CEFTRIAXONE 1GM BAG (ER ONLY) 50 ML IV ONE (11:00)
[2022-06-14] MEDS ORDERED: IV NS 0.9% 1,000 ML IV ONE (11:00)
[2022-06-14] MEDS ORDERED: INSULIN REGULAR, HUMAN 100 UNIT/ML 10 ML VIAL ONE (11:15)
--- NOTE | 2022-06-14 11:22 | NUR ---
CALLED [facility] [phone]
--- NOTE | 2022-06-14 11:31 | NUR ---
BARBARA COSTA WILL CALL DR. OVIEDO BACK.
--- NOTE | 2022-06-14 12:18 | NUR ---
MAY FROM [facility] PT ACCEPTED [place] [facility] [address] [address] DEDRICK Fox PLEASE CALL [phone] PRN WILL TRANSPORT AT 1590.
--- NOTE | 2022-06-14 13:15 | NUR ---
azithromax started 1210 end time 1310. Rocephin start time 1115 end time 1145
--- NOTE | 2022-06-14 14:05 | NUR ---
TRANSPORT AT BEDSIDE FOR [facility] EBS ARCHITECT
--- NOTE | 2022-06-14 14:06 | NUR ---
gave report to grafton NURSE ADORE
[2022-06-14 14:07] VITALS: BP 110/76
== END 2022-06-14 14:15 | disposition short-term general hospital (02) ==
LOC: ER 09:11
DX: J18.1 Lobar pneumonia, unspecified organism (principal); R00.0 Tachycardia, unspecified; E10.65 Type 1 diabetes mellitus with hyperglycemia; D72.829 Elevated white blood cell count, unspecified; D75.839 Thrombocytosis, unspecified; D64.9 Anemia, unspecified; F32.A Depression, unspecified; F17.200 Nicotine dependence, unspecified, uncomplicated; Z79.899 Other long term (current) drug therapy; Z20.822 Contact with and (suspected) exposure to COVID-19
CPT/HCPCS: 99285; 96372; 96365; 96361; 96367; 93005; 71045; 85025; 80048; 87040 ×2; 83605; 80076; 81001; 36415; 82962; 87426; 80143; 80320; 80307; J1815; J0456; J0696; C9803; G0480; J7060

== ENCOUNTER 2022-07-04 10:02 | Inpatient (IN) | payer MEDICAID ==
[~2022-07-04] VITALS: Ht 185.4 cm; Wt 58.1 kg
--- NOTE | 2022-07-04 10:05 | NUR ---
BIB RA 102 FROM HOME C/O ABDOMINAL PAIN FOR A MONTH THAT HAS GOTTEN WORSE. WHEN ASKED TO SHOW WHERE THE PAIN WAS HE POINTED TO THE R SIDE OF HIS RIBS. PT DENIES HAVING DIARRHEA, STATES HE FEELS NAUSEOUS. PAIN IS 9/10 ON PAIN SCALE. BLOOD GLUCOSE [address] GAFFNEY AT BEDSIDE, AWAITING MD ORDERS.
--- NOTE | 2022-07-04 10:11 | NUR ---
IV ESTABLSHED L AC 20G. UNABLE TO OBTAIN BLOOD. SALINE LOCK PLACED.
[2022-07-04] MEDS ORDERED: IV NS 0.9% 1,000 ML BAG IV ONE ×3 (10:30→18:30)
[2022-07-04] MEDS ORDERED: HYDROMORPHONE 1 MG/1 ML DISP.SYRIN IV ONE ×2 (10:30→13:30)
[2022-07-04] MEDS ORDERED: HYDROMORPHONE 1 MG/1 ML DISP.SYRIN ONE ×2 (10:33→13:22)
--- NOTE | 2022-07-04 10:38 | NUR ---
LAB AT BEDSIDE
--- NOTE | 2022-07-04 10:42 | NUR ---
URINE COLLECTED AND SENT
[2022-07-04 11:07] LABS: BILIRUBIN,URINE NEGATIVE (NEGATIVE); COLOR,URINE YELLOW (YELLOW); LEUKOCYTE ESTERASE ,URINE NEGATIVE (NEGATIVE); NITRITE, URINE NEGATIVE (NEGATIVE); PH,URINE 6.5 (5.0-8.0); PROTEIN,URINE NEGATIVE (NEGATIVE); UGLUCOSE 3+ mg/dL (NEGATIVE); UROBILINOGEN,URINE 0.2 EU/dL (0.2)
--- NOTE | 2022-07-04 11:09 | NUR ---
x ray called for eta of image no response.
--- NOTE | 2022-07-04 11:14 | NUR ---
PT IN BED RESTING NO S/S/ OF DISTRESS. A/O X4 PAIN STILL PRESENT BUT HAS DECREASED. CONNECTED TO BEDSIDE MONITOR. AWAITING X RAY.
[2022-07-04 11:15] LABS: CALCIUM, SERUM 8.7 mg/dL (8.5-10.1); CARBON DIOXIDE 24 mmol/L (21-32); CHLORIDE 96 mmol/L (98-107); CREATININE 0.6 mg/dL (0.6-1.3); GLUCOSE 459 mg/dL (74-106); SODIUM SERUM 133 mmol/L (136-145); UREA NITROGEN, BLOOD 6 mg/dL (7-18)
--- NOTE | 2022-07-04 11:15 | NUR ---
X RAY AT BEDSIDE
[2022-07-04 11:32] LABS: ALANINE AMINOTRANSFERASE 14 U/L (12-78); ALBUMIN 2.3 g/dL (3.4-5.0); ALKALINE PHOSPHATASE 118 U/L (46-116); ASPARTATE AMINOTRANSFERASE 8 U/L (15-37); BILIRUBIN,DIRECT 0.1 mg/dL (0.0-0.2); BILIRUBIN,TOTAL 0.4 mg/dL (0.2-1.0); TOTAL PROTEIN, SERUM 7.3 g/dL (6.4-8.2)
--- NOTE | 2022-07-04 11:32 | NUR ---
CALLED [facility] AND OPENED UP A CASE FOR THE PT
[2022-07-04 11:41] LABS: BASOPHILS % (AUTO) 0.3 % (0.0-2.0); EOSINOPHILS % (AUTO) 0.2 % (0.0-6.0); HEMATOCRIT 32 % (39-51); HEMOGLOBIN 10.1 g/dL (13.5-17.5); LYMPHOCYTES # (AUTO) 0.8 K/uL (0.8-4.8); LYMPHOCYTES % (AUTO) 6.7 % (20.0-44.0); MEAN CORPUSCULAR HGB CONC 32 g/dl (31.0-36.0); MEAN CORPUSCULAR VOLUME 89 fL (80-96); MONOCYTES # (AUTO) 0.7 K/uL (0.1-1.30); MONOCYTES % (AUTO) 5.9 % (2.0-12.0); NEUTROPHILS # (AUTO) 10.1 K/uL (1.8-8.9); NEUTROPHILS % (AUTO) 86.9 % (43.0-81.0); PLATELET COUNT (AUTO) 636 K/uL (150-450); RED BLOOD CELL COUNT(AUTO) 3.56 MIL/uL (4.5-6.0); WHITE BLOOD COUNT (AUTO) 11.6 K/uL (4.3-11.0)
[2022-07-04 11:41] LABS: RBC,URINE 0-2 /HPF (0-2); WBC,URINE 0-2 /HPF (0-3)
[2022-07-04 11:42] LABS: BACTERIA,URINE None seen /HPF (None Seen); SQUAMOUS EPITHELIAL CELL,UR Rare /HPF (None Seen); YEAST,URINE Rare /HPF (None Seen)
--- NOTE | 2022-07-04 11:54 | NUR ---
CALLED [facility] FOR A CALL BACK
[2022-07-04] MEDS ORDERED: AZITHROMYCIN 500 MG in IV D5W 250 ML IV ONE (12:00)
[2022-07-04] MEDS ORDERED: INSULIN REGULAR, HUMAN 100 UNIT/ML 10 ML VIAL SQ ONE (12:00)
[2022-07-04] MEDS ORDERED: CEFTRIAXONE 1GM BAG (ER ONLY) 1 GM/50 ML PIGGYBACK IV ONE (12:00)
[2022-07-04] MEDS ORDERED: CEFTRIAXONE 1GM BAG (ER ONLY) 50 ML IV ONE (12:08)
[2022-07-04] MEDS ORDERED: INSULIN REGULAR, HUMAN 100 UNIT/ML 10 ML VIAL ONE (12:09)
--- NOTE | 2022-07-04 12:51 | NUR ---
SHREYA [phone] ASKED TO CALL ONCE THE COVID TEST IS IN TO RECEIVE INFORMATION REGARDING PT'S BED.
--- NOTE | 2022-07-04 12:55 | NUR ---
COVID TEST COLLECTED AND SENT
--- NOTE | 2022-07-04 13:58 | NUR ---
PER [place] [facility], PT ACCEPTED AT [facility], ACCEPTING PHYSICIAN: DR VAN CANTRELL ROOM [id number]. CALL [phone] FOR REPORT.. , [facility] FOR TRANSPORT ETA 15:00
--- NOTE | 2022-07-04 15:24 | NUR ---
TRANSPORT TO [place] ARRIVED AWAITING TRANSPORT.
--- NOTE | 2022-07-04 16:22 | NUR ---
CALLED [facility] WITH UPDATED VITALS
--- NOTE | 2022-07-04 17:02 | NUR ---
PER [place] [facility], PT ACCEPTED AT [facility], ACCEPTING PHYSICIAN: DR VAN CANTRELL ROOM [id number]. CALL [phone] FOR REPORT.. , [facility] FOR TRANSPORT ETA 18:00
[2022-07-04] MEDS ORDERED: ACETAMINOPHEN ES 500 MG TABLET ONE (17:44)
--- NOTE | 2022-07-04 19:27 | NUR ---
CALLED [facility] FOR ADMITTING PHYSICIAN
--- NOTE | 2022-07-04 19:37 | NUR ---
BARBARA RASHEED AUTH # [id number] FOR PT TO STAY
[2022-07-04 21:25] VITALS: BP 102/65
--- NOTE | 2022-07-04 21:25 | NUR ---
RESOURCE MANAGEMENT SPECIALISTINSURANCE CUSTOMER SERVICE SPECIALIST NOTES REPORT RECEIVED FROM [place]. PATIENT WAS TRANSFERRED FROM ER VIA GURNEY, WITH NO SIGNS OF DISTRESS. ORIENTED PATIENT TO ROOM SET UP AND EDUCATED PATIENT ON THE USE OF CALL LIGHT. VS TAKEN, STABLE AND RECORDED. SKIN ASSESSMENT DONE, SKIN IS INTACT. ALL BELONGINGS CHECKED AND BELONGING LIST SIGNED. WILL CONTINUE TO MONITOR AND WILL CARRY OUT ANY ONGOING ACTIVE MS ORDERS.
[2022-07-04] MEDS ORDERED: Z GUARD REMEDY 4 OZ OINT TP PRN (22:30)
[2022-07-04] MEDS ORDERED: INSULIN GLARGINE, 100 UNIT/ML CARTRIDGE SQ SCH (22:30)
[2022-07-04] MEDS ORDERED: MAG HYDROX/AL HYDROX/SIMETH 30 ML UDC PO PRN (22:30)
[2022-07-04] MEDS ORDERED: ZOLPIDEM TARTRATE 5 MG TABLET PO PRN (22:30)
[2022-07-04] MEDS ORDERED: ONDANSETRON HCL/PF 4 MG/2 ML VIAL IVP PRN (22:30)
[2022-07-04] MEDS ORDERED: DEXTROSE 50%-WATER 50 ML DISP.SYRIN IV PRN (22:30)
[2022-07-04] MEDS ORDERED: ACETAMINOPHEN 325 MG TABLET PO PRN (22:30)
[2022-07-04] MEDS ORDERED: MAGNESIUM HYDROXIDE 30 ML UDC PO PRN (22:30)
[2022-07-04] MEDS ORDERED: IV NS 0.9% 1,000 ML IV PRN (22:30)
[2022-07-04] MEDS: INSULIN REGULAR, HUMAN 100 UNIT/ML 3 ML VIAL SQ PRN (22:33)
[2022-07-04] MEDS: HYDROCODONE/APAP 5/325MG TABLET PO PRN (23:41)
[2022-07-05] VITALS: BP 87/54
[2022-07-05] MEDS: KETOROLAC TROMETHAMINE INJ 30 MG/ML VIAL IM PRN ×2 (00:15→06:12)
--- NOTE | 2022-07-05 00:15 | NUR ---
RN NOTES PATIENT C/O OF ABDOMINAL PAIN WITH 9/10 PAIN LEVEL. TORADOL INJ GIVEN IM PRN . WILL CONTINUE TO MONITOR THE PATIENT.
[2022-07-05] MEDS: BLOOD SUGAR DIAGNOSTIC 1 EACH STRIP IN SCH ×3 (01:59→09:44)
[2022-07-05] MEDS: INSULIN REGULAR, HUMAN 100 UNIT/ML 3 ML VIAL SQ PRN ×2 (02:21→06:11)
[2022-07-05] MEDS ORDERED: GUAIFENESIN/D-METHORPHAN HB 5 ML UDC PO PRN (02:30)
[2022-07-05 03:10] VITALS: BP 102/65
--- NOTE | 2022-07-05 06:12 | NUR ---
RN NOTES PATIENT C/O OF ABDOMINAL PAIN WITH 9/10 PAIN LEVEL. TORADOL INJ GIVEN PRN. WILL CONTINUE TO MONITOR THE PATIENT.
[2022-07-05 06:25] LABS: BASOPHILS # (AUTO) 0.1 K/uL (0.0-0.2); BASOPHILS % (AUTO) 0.3 % (0.0-2.0); EOSINOPHILS % (AUTO) 0.2 % (0.0-6.0); HEMATOCRIT 24 % (39-51); HEMOGLOBIN 7.6 g/dL (13.5-17.5); LYMPHOCYTES # (AUTO) 1.2 K/uL (0.8-4.8); LYMPHOCYTES % (AUTO) 7.1 % (20.0-44.0); MEAN CORPUSCULAR HGB CONC 32 g/dl (31.0-36.0); MEAN CORPUSCULAR VOLUME 87 fL (80-96); MONOCYTES # (AUTO) 1.1 K/uL (0.1-1.30); MONOCYTES % (AUTO) 6.2 % (2.0-12.0); NEUTROPHILS # (AUTO) 14.9 K/uL (1.8-8.9); NEUTROPHILS % (AUTO) 86.2 % (43.0-81.0); PLATELET COUNT (AUTO) 546 K/uL (150-450); RED BLOOD CELL COUNT(AUTO) 2.72 MIL/uL (4.5-6.0); WHITE BLOOD COUNT (AUTO) 17.3 K/uL (4.3-11.0)
[2022-07-05 06:46] LABS: CALCIUM, SERUM 8.1 mg/dL (8.5-10.1); CREATININE 0.5 mg/dL (0.6-1.3); MAGNESIUM 1.6 mg/dL (1.8-2.4); POTASSIUM 2.9 mmol/L (3.5-5.1)
[2022-07-05 06:56] LABS: THYROID STIMULATING HORMONE 0.548 uIU/mL (0.358-3.74)
--- NOTE | 2022-07-05 06:58 | NUR ---
NAVAL MARINE ENGINEER CLOSING NOTES PATIENT IN BED RESTING COMFORTABLY. EASILY AWAKEN BY VERBAL STIMULI. A/O X 4. ON 2L OXYGEN VIA NC, BREATHING EVEN AND UNLABORED, NO DISTRESS OR SOB NOTED AT THIS TIME. IV ACCESS LAC #20G RUNNING NS @ 125ML/HR, INFUSING WELL. PATIENT ON PROFESSOR OF GEOGRAPHY WITH CURRENT READING OF SR @ 87. ALL NEEDS ATTENDED. SAFETY MEASURES MAINTAINED DURING SHIFT. WILL ENDORSE TO THE NEXT SHIFT.
[2022-07-05 07:00] VITALS: BP 87/53
--- NOTE | 2022-07-05 07:25 | NUR ---
OPENING NOTE PATIENT RESTING WITH VISIBLE CHEST EXTENSION, ABUSABLE TO VERBAL STIMULI. A/Ox4 ON ROOM AIR WITH 2L NC PRN. TELE EXTERNAL MONITOR READING SR IN 80s. SKIN INTACT AND WARM TO TOUCH. AMBULATORY, CONTINENT: USING URINAL. PATIENT IS NPO. PATIENT HAS BILATERAL CLEAR LUNG SOUNDS, ACTIVE BOWEL SOUNDS AND CAPILLARY REFILL <3. EXPRESSES PAIN UPPER RIGHT ABDOMEN, PER GEOTHERMAL HEAT PUMP MACHINIST NURSE, MEDICATION WAS GIVEN. FALL AND SAFETY PRECAUTIONS IN PLACE BED LOCKED AND AT THE LOWEST POSITION, SRx2 AND CALL LIGHT WITHIN REACH. Addendum: 07/05/22 at 0802 by RICK HIGUERA LVN ADD IV ACCESS ON LAC G20 INTACT AND PATENT, FLUSHING WELL.
[2022-07-05] MEDS ORDERED: IV NS 0.9% 500 ML IV ONE (08:35)
[2022-07-05] MEDS ORDERED: PANTOPRAZOLE 40 MG VIAL IV SCH (09:00)
[2022-07-05] MEDS: POTASSIUM CL. PREMIX PERIPHER. 50 ML IV SCH ×2 (09:31→10:33)
[2022-07-05] MEDS ORDERED: Magnesium 1GM/D5W 100ML PREMIX 100 ML IV SCH (11:00)
[2022-07-05] MEDS ORDERED: HYDR-500 PO (11:10)
[2022-07-05] MEDS ORDERED: GABA-532 PO (11:10)
[2022-07-05] MEDS ORDERED: MULT-24 PO (11:10)
[2022-07-05] MEDS ORDERED: RISP0.2515 PO (11:10)
[2022-07-05] MEDS ORDERED: METH-647 PO (11:10)
[2022-07-05] MEDS ORDERED: ONDA4TAB11 SL (11:10)
[2022-07-05] MEDS ORDERED: BUPR-54 PO (11:10)
[2022-07-05] MEDS ORDERED: BUSP10TA35 PO (11:10)
[2022-07-05] MEDS ORDERED: INSU100V7 SQ (11:10)
[2022-07-05] MEDS ORDERED: AZITHROMYCIN 500 MG in IV D5W 250 ML IV SCH (12:00)
[2022-07-05] MEDS ORDERED: PANT40VI IV (12:15)
[2022-07-05] MEDS ORDERED: Blood Sugar Diagnostic IN (12:15)
[2022-07-05] MEDS ORDERED: AZIT500V11 IV (12:15)
[2022-07-05] MEDS ORDERED: CEFT1FRO2 IV (12:15)
[2022-07-05] MEDS ORDERED: Insulin Glargine,Hum SQ (12:15)
[2022-07-05] MEDS: HYDROCODONE/APAP 5/325MG TABLET PO PRN (12:43)
[2022-07-05] MEDS ORDERED: CEFTRIAXONE 1 G in IV D5W 50 ML IV SCH (13:00)
--- NOTE | 2022-07-05 13:27 | NUR ---
CRITICAL LAB B POST PRANDIAL. MD RUDY PATEL WAS NOTIFIED. NO NEW ORDERS AT THIS TIME.
--- NOTE | 2022-07-05 14:20 | NUR ---
DISCHARGE NOTE PATIENT DISCHARGED/ TRANSFER TO [facility], IN A MEDICALLY STABLE CONDITION. A/O x4. IV ACCESS REMOVED ON LAC G20, CATHETER TIP WAS INTACT, PRESSURE DRESSING WAS APPLIED, NO S/S OF ACTIVE BLEEDING. IV ACCESS, RAC G20, INTACT AND PATENT LEFT IN FOR TRANSFER. EXTERNAL INSPECTOR BALANCE WHEEL MOTION WAS REMOVED AND RETURNED TO [facility]. SKIN INTACT. ALL BELONGING ACCOUNTED FOR AND BELONGING SHEET WAS SIGNED, PLACED IN CHART. REPORT WAS GIVEN TO CONSTANTINO BARRERA. [place] NURSEISAEL RN CALLED FOR REPORT WELL, SPOKE TO CASE MANAGEMENT FROM [id number], IN REGARDS TO TRANSFER. HEALTH TEACHINGS AND DISCHARGE INSTRUCTIONS GIVEN AND VERBALIZED UNDERSTANDING. PATIENT LEFT VIA GURNEY WITH NO S/S OF DISTRESS, ACCOMPANIED BY 2 EMT AND A RN. CHARGE NURSE AWARE OF DISCHARGE. Addendum: 07/05/22 at 1721 by RICK HIGUERA LVN LOW [place] SISTER OF THE PATIENT WAS INFORMED OF TRANSFER.
== END 2022-07-05 14:25 | disposition short-term general hospital (02) | DRG 720 ==
LOC: ER 10:15 → TELE 20:31 → MED 07-05 11:24
PROVIDERS: ADMIT Student in an Organized Health Care Education/Training Program; ATTEND Nurse Practitioner Acute Care
DX: A41.9 Sepsis, unspecified organism (principal); J96.01 Acute respiratory failure with hypoxia; J15.9 Unspecified bacterial pneumonia; E44.0 Moderate protein-calorie malnutrition; E10.40 Type 1 diabetes mellitus with diabetic neuropathy, unspecified; E87.1 Hypo-osmolality and hyponatremia; E10.65 Type 1 diabetes mellitus with hyperglycemia; D64.9 Anemia, unspecified; D75.839 Thrombocytosis, unspecified; F10.21 Alcohol dependence, in remission; Z20.822 Contact with and (suspected) exposure to COVID-19; G89.29 Other chronic pain; F32.A Depression, unspecified; Z98.1 Arthrodesis status; J45.909 Unspecified asthma, uncomplicated; F15.11 Other stimulant abuse, in remission; Z87.891 Personal history of nicotine dependence; Z91.199 Patient's noncompliance with other medical treatment and regimen due to unspecified reason; Z91.148 Patient's other noncompliance with medication regimen for other reason; Z79.4 Long term (current) use of insulin
CPT/HCPCS: 36415; 71045-TC; 74018; 80048-TC; 80061-TC; 80076-TC; 81001; 82962-TC; 83605-TC; 83735-TC; 84100-TC; 84443-TC; 84484-TC; 85025-TC; 85730-TC; 87040-TC; 87086-TC; A4223; C9113; C9803; G0378; J0456; J0696; J1170; J1815; J1885; J3480; J7030; J7040; J7060

== ENCOUNTER 2023-01-14 10:28 | Emergency (ER) | payer MEDICAID ==
[~2023-01-14] VITALS: Ht 185.4 cm; Wt 59.4 kg
[~2023-01-14 10:28] MED LIST changes: +AZIT500V11 IV; +BUPR-54 PO; +BUSP10TA35 PO; +Blood Sugar Diagnostic IN; +CEFT1FRO2 IV; +GABA-532 PO; +HYDR-500 PO; +INSU100V7 SQ; +Insulin Glargine,Hum SQ; +METH-647 PO; +MULT-24 PO; -ONDA4TAB11 PO; +ONDA4TAB11 SL; +PANT40VI IV; +RISP0.2515 PO
[2023-01-14 11:17] LABS: BASOPHILS # (AUTO) 0.1 K/uL (0.0-0.2); EOSINOPHILS # (AUTO) 0.2 K/uL (0.0-0.7); EOSINOPHILS % (AUTO) 2.8 % (0.0-6.0); LYMPHOCYTES # (AUTO) 1.4 K/uL (0.8-4.8); MONOCYTES # (AUTO) 0.4 K/uL (0.1-1.30); MONOCYTES % (AUTO) 6.8 % (2.0-12.0); NEUTROPHILS # (AUTO) 3.5 K/uL (1.8-8.9); RED CELL DISTRIBUTION WIDTH 17.5 % (11.5-15.0); WHITE BLOOD COUNT (AUTO) 5.4 K/uL (4.3-11.0)
[2023-01-14 11:21] LABS: BASOPHILS % (AUTO) 1.1 % (0.0-2.0); HEMATOCRIT 34 % (39-51); HEMOGLOBIN 11.1 g/dL (13.5-17.5); LYMPHOCYTES % (AUTO) 25.1 % (20.0-44.0); MEAN CORPUSCULAR HEMOGLOBIN 26 PG (26.0-33.0); MEAN CORPUSCULAR HGB CONC 32 g/dl (31.0-36.0); MEAN CORPUSCULAR VOLUME 80 fL (80-96); NEUTROPHILS % (AUTO) 64.2 % (43.0-81.0); PLATELET COUNT (AUTO) 459 K/uL (150-450); RED BLOOD CELL COUNT(AUTO) 4.27 MIL/uL (4.5-6.0)
[2023-01-14 11:26] LABS: CALCIUM, SERUM 8.8 mg/dL (8.5-10.1); CREATININE 0.7 mg/dL (0.6-1.3); POTASSIUM 3.7 mmol/L (3.5-5.1)
[2023-01-14 11:32] LABS: ALBUMIN 3.7 g/dL (3.4-5.0); BILIRUBIN,DIRECT 0.1 mg/dL (0.0-0.2); BILIRUBIN,TOTAL 0.2 mg/dL (0.2-1.0); TOTAL PROTEIN, SERUM 7.7 g/dL (6.4-8.2)
[2023-01-14 11:38] LABS: APPEARANCE,URINE CLEAR (CLEAR); BILIRUBIN,URINE NEGATIVE (NEGATIVE); BLOOD, URINE TRACE-INTA Ery/uL (NEGATIVE); COLOR,URINE YELLOW (YELLOW); KETONES,URINE NEGATIVE (NEGATIVE); LEUKOCYTE ESTERASE ,URINE NEGATIVE (NEGATIVE); NITRITE, URINE NEGATIVE (NEGATIVE); PH,URINE 6.5 (5.0-8.0); PROTEIN,URINE NEGATIVE (NEGATIVE); UGLUCOSE 3+ mg/dL (NEGATIVE); UROBILINOGEN,URINE 0.2 EU/dL (0.2)
[2023-01-14 11:40] LABS: INR 0.93 (0.91-1.10); PARTIAL THROMBOPLASTIN TIME 26.9 SEC (24.3-34.3); PROTHROMBIN TIME 9.9 SECS (9.2-11.1)
[2023-01-14 11:45] LABS: ADD URINE CULTURE NO; BACTERIA,URINE Rare /HPF (None Seen); RBC,URINE 0-2 /HPF (0-2); SQUAMOUS EPITHELIAL CELL,UR Rare /HPF (None Seen); WBC,URINE 0-2 /HPF (0-3)
[2023-01-14] MEDS ORDERED: KETOROLAC TROMETHAMINE INJ 30 MG/ML VIAL IV ONE (12:30)
[2023-01-14] MEDS ORDERED: KETOROLAC TROMETHAMINE INJ 30 MG/ML VIAL ONE (12:45)
[2023-01-14] MEDS ORDERED: LIDOCAINE VISCOUS 2% UD 15 ML UDC MM ONE (14:00)
[2023-01-14] MEDS ORDERED: PANTOPRAZOLE 40 MG VIAL IV ONE (14:00)
[2023-01-14] MEDS ORDERED: MAG HYDROX/AL HYDROX/SIMETH 30 ML UDC PO ONE (14:00)
[2023-01-14] MEDS ORDERED: MORPHINE SULFATE INJ 2 MG/ML DISP.SYRIN IV ONE (14:00)
[2023-01-14] MEDS ORDERED: PANTOPRAZOLE 40 MG VIAL ONE (14:01)
[2023-01-14] MEDS ORDERED: MAG HYDROX/AL HYDROX/SIMETH 30 ML UDC ONE (14:02)
[2023-01-14] MEDS ORDERED: MORPHINE SULFATE INJ 4 MG/ML DISP.SYRIN ONE (14:02)
[2023-01-14] MEDS ORDERED: LIDOCAINE VISCOUS 2% UD 15 ML UDC ONE (14:02)
[2023-01-14] MEDS ORDERED: FAMO-131 PO (14:41)
[2023-01-14] MEDS ORDERED: ONDA4TAB11 PO (14:41)
[2023-01-14] MEDS ORDERED: TRAM-351 PO (14:41)
[2023-01-14] MEDS ORDERED: KETO10TA2 PO (14:41)
[2023-01-14] MEDS ORDERED: BENZ-13 PO (15:13)
[2023-01-14 15:25] VITALS: BP 100/70; TEMP 98; O2SAT 97
== END 2023-01-14 15:36 | disposition home or self-care (01) ==
LOC: ER 10:41
DX: K29.70 Gastritis, unspecified, without bleeding (principal); E11.9 Type 2 diabetes mellitus without complications; I10 Essential (primary) hypertension; F17.200 Nicotine dependence, unspecified, uncomplicated; Z79.899 Other long term (current) drug therapy
CPT/HCPCS: 99285; 96374; 71045; 96375; 93005; 85025; 80048; 83690; 80076; 81001; 36415; 85730; 82962; J2270; J1885; J7030; C9113

== ENCOUNTER 2023-03-15 16:47 | Emergency (ER) | payer MEDICAID ==
[~2023-03-15] VITALS: Ht 185.4 cm; Wt 61.2 kg
[~2023-03-15 16:47] MED LIST changes: +BENZ-13 PO; +FAMO-131 PO; +KETO10TA2 PO; +ONDA4TAB11 PO; +TRAM-351 PO
[2023-03-15 16:55] VITALS: TEMP 96.8
[2023-03-15] MEDS ORDERED: IV NS 0.9% 1,000 ML BAG IV ONE (17:00)
[2023-03-15] MEDS ORDERED: ONDANSETRON HCL/PF 4 MG/2 ML VIAL ONE (17:17)
[2023-03-15] MEDS ORDERED: KETOROLAC TROMETHAMINE 15 MG/ML VIAL ONE ×2 (17:17→18:40)
[2023-03-15] MEDS ORDERED: ONDANSETRON HCL/PF - ER 4 MG/2 ML VIAL IV ONE (17:30)
[2023-03-15] MEDS ORDERED: KETOROLAC TROMETHAMINE 15 MG/ML VIAL IV ONE ×2 (17:30→19:00)
[2023-03-15 17:40] LABS: BASOPHILS % (AUTO) 0.6 % (0.0-2.0); EOSINOPHILS # (AUTO) 0.1 K/uL (0.0-0.7); EOSINOPHILS % (AUTO) 1.4 % (0.0-6.0); HEMATOCRIT 38 % (39-51); HEMOGLOBIN 12.1 g/dL (13.5-17.5); LYMPHOCYTES # (AUTO) 1.6 K/uL (0.8-4.8); MEAN CORPUSCULAR HEMOGLOBIN 26 PG (26.0-33.0); MEAN CORPUSCULAR HGB CONC 32 g/dl (31.0-36.0); MEAN CORPUSCULAR VOLUME 80 fL (80-96); MONOCYTES # (AUTO) 0.4 K/uL (0.1-1.30); MONOCYTES % (AUTO) 6.2 % (2.0-12.0); NEUTROPHILS # (AUTO) 4.1 K/uL (1.8-8.9); NEUTROPHILS % (AUTO) 65.8 % (43.0-81.0); PLATELET COUNT (AUTO) 403 K/uL (150-450); RED BLOOD CELL COUNT(AUTO) 4.73 MIL/uL (4.5-6.0); RED CELL DISTRIBUTION WIDTH 17.6 % (11.5-15.0); WHITE BLOOD COUNT (AUTO) 6.3 K/uL (4.3-11.0)
[2023-03-15 17:52] LABS: CALCIUM, SERUM 8.6 mg/dL (8.5-10.1); CREATININE 0.6 mg/dL (0.6-1.3); POTASSIUM 3.5 mmol/L (3.5-5.1)
[2023-03-15 17:58] LABS: ALBUMIN 3.2 g/dL (3.4-5.0); BILIRUBIN,DIRECT 0.1 mg/dL (0.0-0.2); BILIRUBIN,TOTAL 0.3 mg/dL (0.2-1.0); TOTAL PROTEIN, SERUM 7.3 g/dL (6.4-8.2)
[2023-03-15 18:00] LABS: LACTIC ACID 1.1 mmol/L (0.4-2.0)
[2023-03-15] MEDS ORDERED: KETO10TA2 PO (18:41)
[2023-03-15] MEDS ORDERED: DICY20TA11 PO (18:41)
[2023-03-15] MEDS ORDERED: ONDA4TAB11 PO (18:41)
[2023-03-15 19:05] VITALS: BP 110/75; O2SAT 98
[2023-03-15 19:19] LABS: APPEARANCE,URINE CLEAR (CLEAR); BILIRUBIN,URINE NEGATIVE (NEGATIVE); BLOOD, URINE NEGATIVE Ery/uL (NEGATIVE); COLOR,URINE YELLOW (YELLOW); KETONES,URINE 2+ mg/dL (NEGATIVE); LEUKOCYTE ESTERASE ,URINE NEGATIVE (NEGATIVE); NITRITE, URINE NEGATIVE (NEGATIVE); PH,URINE 6.5 (5.0-8.0); PROTEIN,URINE NEGATIVE (NEGATIVE); UGLUCOSE 3+ mg/dL (NEGATIVE); UROBILINOGEN,URINE 0.2 EU/dL (0.2)
== END 2023-03-15 18:52 | disposition home or self-care (01) ==
LOC: ER 16:50
DX: E11.65 Type 2 diabetes mellitus with hyperglycemia (principal); B34.9 Viral infection, unspecified; R11.0 Nausea; I10 Essential (primary) hypertension; E78.5 Hyperlipidemia, unspecified; Z79.4 Long term (current) use of insulin; Z79.899 Other long term (current) drug therapy
CPT/HCPCS: 99285; 96374; 76705; 71045; 96361; 96375; 96376; 85025; 80048; 83605; 83690; 80076; 83735; 81003; 36415; J2405 ×2; J7030; A4223; J1885 ×2

== ENCOUNTER 2023-03-29 13:38 | Emergency (ER) | payer MEDICAID ==
[~2023-03-29] VITALS: Ht 185.4 cm; Wt 61.2 kg
[~2023-03-29 13:38] MED LIST changes: +DICY20TA11 PO
[2023-03-29 13:40] VITALS: BP 107/57; TEMP 97.6; O2SAT 98
[2023-03-29] MEDS ORDERED: KETOROLAC TROMETHAMINE 15 MG/ML VIAL IM ONE (14:00)
[2023-03-29] MEDS ORDERED: KETOROLAC TROMETHAMINE 15 MG/ML VIAL ONE (14:06)
[2023-03-29] MEDS ORDERED: PAXLOVID PO ×2 (14:30→14:33)
[2023-03-29] MEDS ORDERED: BENZ-13 PO (14:30)
[2023-03-29] MEDS ORDERED: IBUP-1955 PO (14:30)
== END 2023-03-29 14:45 | disposition home or self-care (01) ==
LOC: ER 13:40
DX: U07.1 COVID-19 (principal); J06.9 Acute upper respiratory infection, unspecified; R05.9 Cough, unspecified; R09.81 Nasal congestion; I10 Essential (primary) hypertension; E11.9 Type 2 diabetes mellitus without complications; G89.29 Other chronic pain; F17.200 Nicotine dependence, unspecified, uncomplicated; Z79.899 Other long term (current) drug therapy; Z79.4 Long term (current) use of insulin
CPT/HCPCS: 99283; 96372; L0172; J1885

== ENCOUNTER 2023-08-18 15:18 | Emergency (ER) | payer MEDICAID ==
[~2023-08-18] VITALS: Ht 185.4 cm; Wt 59.0 kg
[~2023-08-18 15:18] MED LIST changes: +IBUP-1955 PO; +PAXLOVID PO
[2023-08-18] MEDS ORDERED: ONDANSETRON HCL/PF 4 MG/2 ML VIAL ONE (15:52)
[2023-08-18] MEDS: ONDANSETRON HCL/PF 4 MG/2 ML VIAL IVP ONE (16:00)
[2023-08-18] MEDS: IV NS 0.9% 1,000 ML BAG IV ONE (16:00)
[2023-08-18 16:04] LABS: BASOPHILS % (AUTO) 0.7 % (0.0-2.0); EOSINOPHILS % (AUTO) 0.7 % (0.0-6.0); HEMATOCRIT 38 % (39-51); HEMOGLOBIN 12.1 g/dL (13.5-17.5); LYMPHOCYTES # (AUTO) 1.3 K/uL (0.8-4.8); LYMPHOCYTES % (AUTO) 23.5 % (20.0-44.0); MEAN CORPUSCULAR HEMOGLOBIN 28 PG (26.0-33.0); MEAN CORPUSCULAR HGB CONC 32 g/dl (31.0-36.0); MEAN CORPUSCULAR VOLUME 86 fL (80-96); MONOCYTES # (AUTO) 0.3 K/uL (0.1-1.30); MONOCYTES % (AUTO) 5.7 % (2.0-12.0); NEUTROPHILS # (AUTO) 3.9 K/uL (1.8-8.9); NEUTROPHILS % (AUTO) 69.4 % (43.0-81.0); PLATELET COUNT (AUTO) 298 K/uL (150-450); RED BLOOD CELL COUNT(AUTO) 4.36 MIL/uL (4.5-6.0); RED CELL DISTRIBUTION WIDTH 16.1 % (11.5-15.0); WHITE BLOOD COUNT (AUTO) 5.7 K/uL (4.3-11.0)
[2023-08-18 16:18] LABS: BILIRUBIN,DIRECT 0.1 mg/dL (0.0-0.2); BILIRUBIN,TOTAL 0.3 mg/dL (0.2-1.0); CALCIUM, SERUM 8.2 mg/dL (8.5-10.1); CREATININE 0.7 mg/dL (0.6-1.3); POTASSIUM 5.1 mmol/L (3.5-5.1); TOTAL PROTEIN, SERUM 6.6 g/dL (6.4-8.2)
[2023-08-18 16:24] LABS: APPEARANCE,URINE CLEAR (CLEAR); BILIRUBIN,URINE NEGATIVE (NEGATIVE); BLOOD, URINE NEGATIVE Ery/uL (NEGATIVE); KETONES,URINE TRACE mg/dL (NEGATIVE); LEUKOCYTE ESTERASE ,URINE NEGATIVE (NEGATIVE); NITRITE, URINE NEGATIVE (NEGATIVE); PROTEIN,URINE NEGATIVE (NEGATIVE); UGLUCOSE 3+ mg/dL (NEGATIVE); UROBILINOGEN,URINE 0.2 EU/dL (0.2)
[2023-08-18] MEDS: INSULIN REGULAR, HUMAN 100 UNIT/ML 10 ML VIAL SQ ONE (16:30)
[2023-08-18] MEDS ORDERED: INSULIN REGULAR, HUMAN 100 UNIT/ML 10 ML VIAL ONE (16:51)
[2023-08-18] MEDS: CYCLOBENZAPRINE 10 MG TABLET PO ONE (17:30)
[2023-08-18] MEDS: MORPHINE SULFATE INJ 2 MG/ML DISP.SYRIN IV ONE (17:30)
[2023-08-18] MEDS ORDERED: MORPHINE SULFATE INJ 2 MG/ML DISP.SYRIN ONE (17:31)
[2023-08-18] MEDS ORDERED: CYCLOBENZAPRINE 10 MG TABLET ONE (17:31)
[2023-08-18 17:33] LABS: RBC,URINE 0-2 /HPF (0-2); WBC,URINE 0-2 /HPF (0-3)
[2023-08-18 17:34] LABS: ADD URINE CULTURE NO; BACTERIA,URINE 1+ /HPF (None Seen); COLOR,URINE LIGHT YELLOW (YELLOW); MUCUS,URINE None Seen /LPF (None Seen); SQUAMOUS EPITHELIAL CELL,UR None Seen /HPF (None Seen)
[2023-08-18 17:45] VITALS: TEMP 98.4
[2023-08-18] MEDS ORDERED: CYCL5TAB PO (19:25)
[2023-08-18] MEDS ORDERED: HYDR-4209 PO (19:25)
[2023-08-18] MEDS ORDERED: INSU100V7 SQ (19:25)
[2023-08-18] MEDS ORDERED: Blood Sugar Diagnostic IN (19:25)
[2023-08-18 20:09] VITALS: BP 121/78; O2SAT 99
== END 2023-08-18 20:09 | disposition home or self-care (01) ==
LOC: ER 15:20
DX: S22.31XA Fracture of one rib, right side, initial encounter for closed fracture (principal); E11.65 Type 2 diabetes mellitus with hyperglycemia; M25.561 Pain in right knee; I10 Essential (primary) hypertension; Z86.16 Personal history of COVID-19; Z91.148 Patient's other noncompliance with medication regimen for other reason; W18.39XA Other fall on same level, initial encounter; Y93.89 Activity, other specified; Y92.89 Other specified places as the place of occurrence of the external cause; Y99.8 Other external cause status
CPT/HCPCS: 99284; 96374; 96361; 96375; 73502; 73564; 71100; 85025; 80048; 83690; 80076; 81001; 36415; 82962 ×4; 96372; J1815; J2405; J7030; J2270

== ENCOUNTER 2023-08-29 16:22 | Emergency (ER) | payer MEDICAID ==
[~2023-08-29] VITALS: Ht 185.4 cm; Wt 59.0 kg
[~2023-08-29 16:22] MED LIST changes: +CYCL5TAB PO; +HYDR-4209 PO
[2023-08-29] MEDS ORDERED: KETOROLAC TROMETHAMINE 15 MG/ML VIAL ONE (18:25)
[2023-08-29] MEDS ORDERED: INSULIN REGULAR, HUMAN 100 UNIT/ML 10 ML VIAL ONE (18:32)
[2023-08-29 18:36] LABS: BASOPHILS # (AUTO) 0.1 K/uL (0.0-0.2); BASOPHILS % (AUTO) 0.8 % (0.0-2.0); EOSINOPHILS # (AUTO) 0.2 K/uL (0.0-0.7); EOSINOPHILS % (AUTO) 2.7 % (0.0-6.0); HEMATOCRIT 38 % (39-51); HEMOGLOBIN 12.5 g/dL (13.5-17.5); LYMPHOCYTES # (AUTO) 1.8 K/uL (0.8-4.8); LYMPHOCYTES % (AUTO) 28.2 % (20.0-44.0); MEAN CORPUSCULAR HEMOGLOBIN 27 PG (26.0-33.0); MEAN CORPUSCULAR HGB CONC 33 g/dl (31.0-36.0); MEAN CORPUSCULAR VOLUME 84 fL (80-96); MONOCYTES # (AUTO) 0.5 K/uL (0.1-1.30); MONOCYTES % (AUTO) 7.5 % (2.0-12.0); NEUTROPHILS # (AUTO) 3.9 K/uL (1.8-8.9); NEUTROPHILS % (AUTO) 60.8 % (43.0-81.0); PLATELET COUNT (AUTO) 468 K/uL (150-450); RED BLOOD CELL COUNT(AUTO) 4.56 MIL/uL (4.5-6.0); RED CELL DISTRIBUTION WIDTH 15.9 % (11.5-15.0); WHITE BLOOD COUNT (AUTO) 6.4 K/uL (4.3-11.0)
[2023-08-29] MEDS: KETOROLAC TROMETHAMINE 15 MG/ML VIAL IM ONE (18:40)
[2023-08-29] MEDS: INSULIN REGULAR, HUMAN 100 UNIT/ML 10 ML VIAL IV ONE (18:44)
[2023-08-29 18:55] LABS: ALBUMIN 3.3 g/dL (3.4-5.0); BILIRUBIN,DIRECT 0.1 mg/dL (0.0-0.2); BILIRUBIN,TOTAL 0.3 mg/dL (0.2-1.0); CALCIUM, SERUM 9.5 mg/dL (8.5-10.1); CREATININE 0.7 mg/dL (0.6-1.3); POTASSIUM 4.8 mmol/L (3.5-5.1); TOTAL PROTEIN, SERUM 7.5 g/dL (6.4-8.2)
[2023-08-29 19:03] LABS: APPEARANCE,URINE Clear (CLEAR); BILIRUBIN,URINE Negative (NEGATIVE); BLOOD, URINE Negative Ery/uL (NEGATIVE); COLOR,URINE Other (YELLOW); KETONES,URINE Negative (NEGATIVE); LEUKOCYTE ESTERASE ,URINE Negative (NEGATIVE); NITRITE, URINE Negative (NEGATIVE); PH,URINE 5.5 (5.0-8.0); PROTEIN,URINE Negative (NEGATIVE); UGLUCOSE 500 MG/DL mg/dL (NEGATIVE); UROBILINOGEN,URINE 0.2 EU/dL (0.2)
[2023-08-29] MEDS ORDERED: IBUP-1955 PO (19:30)
[2023-08-29] MEDS ORDERED: ACET-2605 PO (19:30)
[2023-08-29 19:42] VITALS: BP 110/70; TEMP 98.2; O2SAT 98
== END 2023-08-29 19:42 | disposition home or self-care (01) ==
LOC: ER 16:29
DX: G89.29 Other chronic pain (principal); R07.81 Pleurodynia; M54.9 Dorsalgia, unspecified; E11.9 Type 2 diabetes mellitus without complications; I10 Essential (primary) hypertension; F19.10 Other psychoactive substance abuse, uncomplicated; F17.200 Nicotine dependence, unspecified, uncomplicated; Z91.148 Patient's other noncompliance with medication regimen for other reason; Z86.16 Personal history of COVID-19
CPT/HCPCS: 99284; 96374; 85025; 80048; 83690; 80076; 81003; 36415; 82962 ×2; 96372; J1815; J1885

== ENCOUNTER 2023-09-01 18:34 | Emergency (ER) | payer MEDICAID ==
[~2023-09-01] VITALS: Ht 185.4 cm; Wt 59.0 kg
[~2023-09-01 18:34] MED LIST changes: +ACET-2605 PO
[2023-09-01 18:40] VITALS: TEMP 97.8
[2023-09-01] MEDS: IV NS 0.9% 1,000 ML BAG IV ONE (18:50)
[2023-09-01 19:01] LABS: BASOPHILS # (AUTO) 0.1 K/uL (0.0-0.2); BASOPHILS % (AUTO) 0.9 % (0.0-2.0); EOSINOPHILS # (AUTO) 0.1 K/uL (0.0-0.7); EOSINOPHILS % (AUTO) 2.2 % (0.0-6.0); HEMATOCRIT 33 % (39-51); HEMOGLOBIN 10.8 g/dL (13.5-17.5); LYMPHOCYTES # (AUTO) 1.5 K/uL (0.8-4.8); LYMPHOCYTES % (AUTO) 25.1 % (20.0-44.0); MEAN CORPUSCULAR HEMOGLOBIN 28 PG (26.0-33.0); MEAN CORPUSCULAR HGB CONC 33 g/dl (31.0-36.0); MEAN CORPUSCULAR VOLUME 85 fL (80-96); MONOCYTES # (AUTO) 0.4 K/uL (0.1-1.30); MONOCYTES % (AUTO) 5.9 % (2.0-12.0); NEUTROPHILS % (AUTO) 65.9 % (43.0-81.0); PLATELET COUNT (AUTO) 448 K/uL (150-450); RED BLOOD CELL COUNT(AUTO) 3.87 MIL/uL (4.5-6.0); RED CELL DISTRIBUTION WIDTH 15.4 % (11.5-15.0); WHITE BLOOD COUNT (AUTO) 6.1 K/uL (4.3-11.0)
[2023-09-01 19:16] LABS: SITE, VBG Other; VBG BASE EXCESS -3.3 mmol/L (-3-3); VBG COHb 0.1 %; VBG MetHb 0.2 %; VBG O2Hb 86.1 %; VBG OXYGEN SATURATION 86.4 %; VBG PCO2 38.9 mmHg (40-52); VBG PH 7.365 (7.31-7.41)
[2023-09-01 19:30] LABS: CALCIUM, SERUM 8.5 mg/dL (8.5-10.1); CREATININE 1.4 mg/dL (0.6-1.3); POTASSIUM 4.3 mmol/L (3.5-5.1)
[2023-09-01 19:33] LABS: ALBUMIN 2.6 g/dL (3.4-5.0); BILIRUBIN,DIRECT 0.1 mg/dL (0.0-0.2); BILIRUBIN,TOTAL 0.2 mg/dL (0.2-1.0); TOTAL PROTEIN, SERUM 6.3 g/dL (6.4-8.2)
[2023-09-01] MEDS ORDERED: MORPHINE SULFATE INJ 4 MG/ML DISP.SYRIN ONE (19:41)
[2023-09-01] MEDS ORDERED: ONDANSETRON HCL/PF 4 MG/2 ML VIAL ONE (19:41)
[2023-09-01] MEDS: MORPHINE SULFATE INJ 2 MG/ML DISP.SYRIN IV ONE (19:45)
[2023-09-01] MEDS: ONDANSETRON HCL/PF - ER 4 MG/2 ML VIAL IV ONE (19:45)
[2023-09-01] MEDS: IV NS 0.9% 1,000 ML IV ONE (19:53)
[2023-09-01] MEDS: INSULIN REGULAR, HUMAN 100 UNIT/ML 10 ML VIAL SQ ONE (19:53)
[2023-09-01 21:24] LABS: CALCIUM, SERUM 8.7 mg/dL (8.5-10.1); POTASSIUM 3.8 mmol/L (3.5-5.1)
[2023-09-01 21:38] LABS: APPEARANCE,URINE CLEAR (CLEAR); BILIRUBIN,URINE NEGATIVE (NEGATIVE); BLOOD, URINE NEGATIVE Ery/uL (NEGATIVE); COLOR,URINE YELLOW (YELLOW); KETONES,URINE NEGATIVE (NEGATIVE); LEUKOCYTE ESTERASE ,URINE NEGATIVE (NEGATIVE); NITRITE, URINE NEGATIVE (NEGATIVE); PROTEIN,URINE NEGATIVE (NEGATIVE); UGLUCOSE 3+ mg/dL (NEGATIVE); UROBILINOGEN,URINE 0.2 EU/dL (0.2)
[2023-09-01] MEDS: KETOROLAC TROMETHAMINE 15 MG/ML VIAL IV ONE (21:40)
[2023-09-01] MEDS ORDERED: KETOROLAC TROMETHAMINE 15 MG/ML VIAL ONE (21:41)
[2023-09-01 21:52] LABS: ADD URINE CULTURE NO; BACTERIA,URINE None seen /HPF (None Seen); RBC,URINE 0-2 /HPF (0-2); SQUAMOUS EPITHELIAL CELL,UR 0-2 /HPF (None Seen); WBC,URINE 0-2 /HPF (0-3)
[2023-09-01 22:00] VITALS: BP 115/68; O2SAT 98
== END 2023-09-01 22:01 | disposition home or self-care (01) ==
LOC: ER 19:21
DX: E11.65 Type 2 diabetes mellitus with hyperglycemia (principal); R10.9 Unspecified abdominal pain; R53.1 Weakness; I10 Essential (primary) hypertension; F19.10 Other psychoactive substance abuse, uncomplicated; F17.200 Nicotine dependence, unspecified, uncomplicated; Z91.148 Patient's other noncompliance with medication regimen for other reason
CPT/HCPCS: 99284; 96374; 96361 ×2; 96375 ×2; 82803 ×2; 85025; 80048 ×2; 83690; 80076; 81001; 36415; 82962; 96372; J1815; J2270; J2405 ×2; J7030; J1885

== ENCOUNTER 2024-07-06 13:41 | Emergency (ER) | payer MEDICAID ==
[~2024-07-06] VITALS: Ht 185.4 cm; Wt 61.2 kg
[2024-07-06] MEDS ORDERED: MORPHINE SULFATE INJ 4 MG/ML DISP.SYRIN ONE (14:46)
[2024-07-06] MEDS: MORPHINE SULFATE INJ 4 MG/ML DISP.SYRIN IM ONE (14:51)
[2024-07-06] MEDS ORDERED: HYDROCODONE/APAP 10/325MG TABLET ONE (15:30)
[2024-07-06] MEDS: HYDROCODONE/APAP 10/325MG TABLET PO ONE (15:32)
[2024-07-06] MEDS ORDERED: HYDR-3980 PO (15:34)
[2024-07-06 16:10] VITALS: BP 133/75; TEMP 98; O2SAT 100
== END 2024-07-06 16:12 | disposition home or self-care (01) ==
LOC: ER 13:49
DX: S42.292A Other displaced fracture of upper end of left humerus, initial encounter for closed fracture (principal); I10 Essential (primary) hypertension; F17.200 Nicotine dependence, unspecified, uncomplicated; E11.9 Type 2 diabetes mellitus without complications; Z79.899 Other long term (current) drug therapy; Z86.16 Personal history of COVID-19; W01.0XXA Fall on same level from slipping, tripping and stumbling without subsequent striking against object, initial encounter; Y93.89 Activity, other specified; Y92.89 Other specified places as the place of occurrence of the external cause; Y99.8 Other external cause status
CPT/HCPCS: 99283; 96372; 73030; J2270

== ENCOUNTER 2024-07-14 15:49 | Emergency (ER) | payer MEDICAID ==
[~2024-07-14] VITALS: Ht 185.4 cm; Wt 64.4 kg
[~2024-07-14 15:49] MED LIST changes: +HYDR-3980 PO
[2024-07-14 16:27] VITALS: BP 110/72; TEMP 98; O2SAT 100
[2024-07-14] MEDS ORDERED: oxyCODONE/APAP (5/325 MG) 1 UDTAB TABLET ONE (18:01)
[2024-07-14] MEDS: oxyCODONE/APAP (5/325 MG) 1 UDTAB TABLET PO ONE (18:04)
[2024-07-14] MEDS ORDERED: ACET-2030 PO (19:21)
[2024-07-14] MEDS ORDERED: KETO10TA2 PO (19:21)
== END 2024-07-14 20:41 | disposition home or self-care (01) ==
LOC: ER 15:58
DX: S42.292A Other displaced fracture of upper end of left humerus, initial encounter for closed fracture (principal); I10 Essential (primary) hypertension; E11.9 Type 2 diabetes mellitus without complications; F17.200 Nicotine dependence, unspecified, uncomplicated; Z79.899 Other long term (current) drug therapy; Z86.16 Personal history of COVID-19; W19.XXXA Unspecified fall, initial encounter; Y93.89 Activity, other specified; Y92.89 Other specified places as the place of occurrence of the external cause; Y99.8 Other external cause status
CPT/HCPCS: 73030-TC

== ENCOUNTER 2024-12-06 17:15 | Inpatient (IN) | payer MEDICAID ==
[~2024-12-06] VITALS: Ht 185.4 cm; Wt 45.4 kg
[~2024-12-06 17:15] MED LIST changes: +ACET-2030 PO
[2024-12-06 17:33] LABS: FRACTIONATED INSPIRED OXYGEN-V 21.0 %; SITE, VBG VBG - N/A; VBG BASE EXCESS 1.2 mmol/L (-2.0-3.0); VBG HCO3 25.7 mmol/L (22.0-29.0); VBG MetHb 0.3 % (0.5-1.5); VBG OXYGEN SATURATION 84.4 % (60.0-85.0); VBG PCO2 40.7 mmHg (38.0-54.0); VBG PH 7.419 (7.320-7.430); VBG PO2 52.4 mmHg (23.0-48.0); VBG TOTAL HEMOGLOBIN 8.3 G/dL (13.5-17.5)
[2024-12-06] MEDS: IV NS 0.9% 1,000 ML BAG IV ONE ×3 (17:35→19:59)
[2024-12-06 17:37] LABS: PLATELET COUNT (AUTO) 544 K/uL (150-450); RED BLOOD CELL COUNT(AUTO) 3.62 MIL/uL (4.5-6.0); RED CELL DISTRIBUTION WIDTH 19.0 % (11.5-15.0); WHITE BLOOD COUNT (AUTO) 5.2 K/uL (4.3-11.0)
[2024-12-06 17:48] LABS: CALCIUM, SERUM 7.9 mg/dL (8.5-10.1); CREATININE 0.8 mg/dL (0.6-1.3); SODIUM SERUM 121.0 mmol/L (136-145); UREA NITROGEN, BLOOD 14.0 mg/dL (7-18)
[2024-12-06 17:51] LABS: ALCOHOL, BLOOD < 3 mg/dL (0-10)
[2024-12-06] MEDS ORDERED: INSULIN REGULAR, HUMAN 100 UNIT/ML 10 ML VIAL ONE (18:00)
[2024-12-06 18:01] LABS: ACETONE, SERUM SMALL (NEGATIVE)
[2024-12-06] MEDS: INSULIN REGULAR, HUMAN 100 UNIT/ML 10 ML VIAL SQ ONE (18:06)
[2024-12-06 18:32] LABS: APPEARANCE,URINE CLEAR (CLEAR); BLOOD, URINE Negative Ery/uL (NEGATIVE); LEUKOCYTE ESTERASE ,URINE Negative (NEGATIVE); NITRITE, URINE NEGATIVE (NEGATIVE); UGLUCOSE >=1000 mg/dL (NEGATIVE)
[2024-12-06] MEDS ORDERED: KETOROLAC TROMETHAMINE 15 MG/ML VIAL ONE (19:06)
[2024-12-06] MEDS: KETOROLAC TROMETHAMINE 15 MG/ML VIAL IV ONE (19:11)
[2024-12-06] MEDS ORDERED: DEXTROSE 50%-WATER 50 ML DISP.SYRIN IV PRN (19:30)
[2024-12-06] MEDS ORDERED: MAGNESIUM HYDROXIDE 30 ML UDC PO PRN (19:30)
[2024-12-06] MEDS ORDERED: ONDANSETRON HCL/PF 4 MG/2 ML VIAL IVP PRN (19:30)
[2024-12-06 19:58] LABS: AMPHETAMINE, URINE NEGATIVE (NEGATIVE); BARBITURATE, URINE NEGATIVE (NEGATIVE); BENZODIAZEPINE, URINE NEGATIVE (NEGATIVE); CANNABINOID, URINE NEGATIVE (NEGATIVE); COCCAINE, URINE NEGATIVE (NEGATIVE); OPIATE, URINE NEGATIVE (NEGATIVE)
[2024-12-06] MEDS ORDERED: ONDANSETRON HCL/PF 4 MG/2 ML VIAL ONE (19:58)
[2024-12-06] MEDS: ONDANSETRON HCL/PF 4 MG/2 ML VIAL IV ONE (19:59)
[2024-12-06] MEDS: MORPHINE SULFATE INJ 2 MG/ML DISP.SYRIN IV ONE (19:59)
[2024-12-06] MEDS ORDERED: MORPHINE SULFATE INJ 4 MG/ML DISP.SYRIN ONE (19:59)
[2024-12-06] MEDS: INSULIN REGULAR, HUMAN 100 UNIT/ML 3 ML VIAL SQ PRN (22:16)
[2024-12-06] MEDS: BLOOD SUGAR DIAGNOSTIC 1 EACH STRIP IN SCH (22:16)
[2024-12-06] MEDS: INSULIN GLARGINE, 100 UNIT/ML CARTRIDGE SQ SCH (23:30)
[2024-12-06] MEDS ORDERED: METHOCARBAMOL (500MG) 500 MG TABLET ONE (23:53)
[2024-12-06] MEDS: METHOCARBAMOL (750MG) 750 MG TABLET PO SCH (23:53)
[2024-12-06] MEDS ORDERED: INSULIN GLARGINE, 100 UNIT/ML CARTRIDGE SQ ONE (23:54)
[2024-12-07] MEDS: IV NS 0.9% 1,000 ML IV PRN (03:43)
[2024-12-07] MEDS: HYDROCODONE/APAP 5/325MG TABLET PO PRN (04:27)
[2024-12-07 04:34] VITALS: BP 102/80; TEMP 97.5; O2SAT 99
[2024-12-07 06:44] LABS: PLATELET COUNT (AUTO) 540 K/uL (150-450); RED BLOOD CELL COUNT(AUTO) 3.60 MIL/uL (4.5-6.0); RED CELL DISTRIBUTION WIDTH 19.8 % (11.5-15.0); WHITE BLOOD COUNT (AUTO) 5.8 K/uL (4.3-11.0)
[2024-12-07 07:03] LABS: IRON, SERUM 20.0 ug/dl (50-175)
[2024-12-07 07:05] LABS: CALCIUM, SERUM 8.2 mg/dL (8.5-10.1); CREATININE 0.7 mg/dL (0.6-1.3); PHOSPHORUS 3.5 mg/dL (2.5-4.9); SODIUM SERUM 132.0 mmol/L (136-145); UREA NITROGEN, BLOOD 10.0 mg/dL (7-18)
[2024-12-07] MEDS: PANTOPRAZOLE 40 MG TABLET.DR PO SCH (08:25)
[2024-12-07] MEDS: SOD FERRIC GLUC 125 MG in IV NS 0.9% 100 ML IV SCH (14:16)
[2024-12-07] MEDS: ACETAMINOPHEN 325 MG TABLET PO PRN (14:16)
[2024-12-07 15:15] VITALS: TEMP 97.5
== END 2024-12-07 18:30 | disposition left against medical advice (07) | DRG 422 ==
LOC: ER 17:18 → MED 12-07 02:37
PROVIDERS: ADMIT Nurse Practitioner Family
DX: E86.0 Dehydration (principal); E87.1 Hypo-osmolality and hyponatremia; D75.839 Thrombocytosis, unspecified; E11.40 Type 2 diabetes mellitus with diabetic neuropathy, unspecified; D50.9 Iron deficiency anemia, unspecified; I10 Essential (primary) hypertension; Z98.1 Arthrodesis status; G89.29 Other chronic pain; Z91.148 Patient's other noncompliance with medication regimen for other reason; Z91.119 Patient's noncompliance with dietary regimen due to unspecified reason; Z79.4 Long term (current) use of insulin; Z87.891 Personal history of nicotine dependence; Z79.899 Other long term (current) drug therapy; Z53.29 Procedure and treatment not carried out because of patient's decision for other reasons; T39.395A Adverse effect of other nonsteroidal anti-inflammatory drugs [NSAID], initial encounter; Y92.9 Unspecified place or not applicable; M19.90 Unspecified osteoarthritis, unspecified site; J45.909 Unspecified asthma, uncomplicated; E11.65 Type 2 diabetes mellitus with hyperglycemia; Z87.81 Personal history of (healed) traumatic fracture; F32.A Depression, unspecified
CPT/HCPCS: 36415; 71045-TC; 73030-TC; 80048-TC; 82010-TC; 82728-TC; 82803-TC; 82962-TC; 83540-TC; 83735-TC; 84100-TC; 85025-TC; A4223; G0378; G0480; J1815; J1885; J2270; J2405; J2916; J7030